=== PATIENT | female | born 1965 | race Asian ===

== ENCOUNTER 2020-11-07 17:45 | Outpatient (REF) | payer OTHER, SELFPAY ==
--- NOTE | 2020-11-07 17:48 | MR_ITS ---
EXAMINATION: MR BREAST WITHOUT AND WITH CONTRAST, BILATERAL CLINICAL INFORMATION: Personal history of left breast ADH. Follow up for bilateral areas of probably benign nodular enhancement. COMPARISON: Bilateral breast MRI dated 09/10/2019, images from MR-guided core biopsy and postbiopsy mammogram on the left dated 10/14/2019. TECHNIQUE: Imaging was performed with a dedicated breast coil. Prior to the administration of contrast, bilateral axial T1 and bilateral axial T2 weighted sequences were obtained. After the uneventful administration of?6.5 mL of Gadavist, dynamic contrast-enhanced VIBRANT series through the breasts in the axial plane were performed. Subtracted images were performed and reviewed. A delayed sagittal sequence through both breasts was acquired. Additionally, CAD post-processing, including maximum intensity projections, 3-D reconstructions and kinetic analysis, were performed an independent workstation and reviewed by the interpreting radiologist is a portion of this exam. FINDINGS: The patient's breast tissue is composed of heterogeneously dense fibroglandular elements. There is mild bilateral background parenchymal enhancement present. LEFT BREAST: There are subtle postsurgical changes in the 6-7 o'clock position, no suspicious enhancement is seen at the site of prior excision. There is focal [id number] enhancement in the upper inner quadrant (subtracted sequence image 57 of 116) which is unchanged compared with prior exam. Additionally, there is an oval enhancing nodule with a somewhat bilobed appearance in the 4 o'clock position, anterior depth (subtracted sequence image 72 of 116) measuring 0.5 cm which demonstrates indeterminate enhancement kinetics, type II enhancement curve. There is no new suspicious enhancing mass, duct dilatation or ductal-type enhancement present. No skin thickening or nipple retraction is seen. RIGHT BREAST: There is a round enhancing nodule in the 10 o'clock position, 2.5 cm from the nipple measuring 0.4 cm (subtracted sequence image 63 of 116). Although this enhancing nodule has not increased in size, it demonstrates suspicious enhancement kinetics (washout-type curve). There is no new suspicious enhancing mass, duct dilatation or ductal type enhancement present. No skin thickening or nipple retraction is seen. There is no suspicious internal mammary chain or axillary adenopathy. Limited views of the chest and abdomen are unremarkable. MR/MR breast BI wo/w con IMPRESSION: Bilateral enhancing nodules, 4 o'clock position on the left and 10 o'clock position on the right are indeterminate in appearance due to their enhancement kinetics. Postsurgical change in the left breast at 6 o'clock position from prior ADH resection. ASSESSMENT: LEFT BREAST: BI-RADS 4, suspicious. RIGHT BREAST: BI-RADS 4, suspicious. RECOMMENDATIONS: Recommend bilateral MR-guided core biopsy. The areas recommended for biopsy are smaller than the previously biopsied area which demonstrated atypical duct hyperplasia, however have similar morphology and enhancement. Results were called to Dr. Son on 11/10/20.
== END 2020-11-07 17:46 | disposition home or self-care (01) ==
LOC: HO.MRI 17:45
PROVIDERS: Visit Provider Internal Medicine Medical Oncology
DX: N60.92 Unspecified benign mammary dysplasia of left breast (principal)
CPT/HCPCS: 77049; A9585

== ENCOUNTER 2020-11-22 09:31 | Outpatient (REF) | payer OTHER, SELFPAY ==
--- NOTE | 2020-11-22 | MM_ITS ---
EXAMINATION: MR GUIDED VACUUM-ASSISTED CORE BIOPSY BREAST, LEFT MR GUIDED VACUUM-ASSISTED CORE BIOPSY BREAST, RIGHT MM DIGITAL MAMMOGRAPHY POST BIOPSY, BILATERAL CLINICAL INFORMATION: Personal history left breast ADH, status post subsequent excisional biopsy at outside facility. High risk screening MRI demonstrates small enhancing nodule left anterior 4:00 position and right anterior 10:00 position. Bilateral MR guided biopsy is recommended. COMPARISON: MRI bilateral breasts 11/07/2020, left MR biopsy 10/14/2019, bilateral screening mammography 12/26/2018. TECHNIQUE/PROCEDURE: Informed consent was obtained from the patient after discussion of the benefits, risks, and alternatives to biopsy today. Patient appeared to understand. Gave opportunity for questions. Patient signed consent form. Biopsy is performed under MRI guidance using breast surface coil. Imaging is performed without and with use of 6.5 mL Gadavist gadolinium contrast. [employer] introducer localization system is used with grid. LEFT BREAST: LESION: 5 mm enhancing nodule anterior 4:00 position with type II kinetics. LOCAL ANESTHESIA: 7.5 mL 1% lidocaine; 10.5 mL 2% lidocaine with epinephrine. NEEDLE: [employer] 9-gauge vacuum assisted core biopsy device. APPROACH: Lateral medial. CORES: 7. CLIP: TriMark cylinder shaped. RIGHT BREAST: Separate fresh biopsy supplies used for contralateral breast. LESION: 0.4 cm enhancing nodule anterior 12:00 position, washout kinetics. LOCAL ANESTHESIA: : 7.5 mL 1% lidocaine; 10.5 mL 2% lidocaine with epinephrine. NEEDLE: [employer] 9-gauge vacuum assisted core biopsy device. APPROACH: Lateral medial. CORES: 7. CLIP: TriMark spool/barbell shaped. POSTPROCEDURE UNILATERAL DIGITAL MAMMOGRAM: Mammography is performed using digital mammography in bilateral CC and bilateral ML views. The breasts are heterogeneously dense, which may obscure small masses (ACR BI-RADS breast composition Category c). The clip markers are in position. No gross hematoma. The patient tolerated the procedure well. No immediate complications. Home instructions reviewed with the patient. Final pathology results are pending. MM/MM diagnostic mammo BI IMPRESSION: 1. Status post MRI guided vacuum-assisted core biopsy left breast with clip placement and right breast with clip placement (total 2 sites, one each side). 2. Final pathology results pending. An addendum report will be issued.
--- NOTE | 2020-11-22 09:41 | MR_ITS ---
EXAMINATION: MR GUIDED VACUUM-ASSISTED CORE BIOPSY BREAST, LEFT MR GUIDED VACUUM-ASSISTED CORE BIOPSY BREAST, RIGHT MM DIGITAL MAMMOGRAPHY POST BIOPSY, BILATERAL CLINICAL INFORMATION: Personal history left breast ADH, status post subsequent excisional biopsy at outside facility. High risk screening MRI demonstrates small enhancing nodule left anterior 4:00 position and right anterior 10:00 position. Bilateral MR guided biopsy is recommended. COMPARISON: MRI bilateral breasts 11/07/2020, left MR biopsy 10/14/2019, bilateral screening mammography 12/26/2018. TECHNIQUE/PROCEDURE: Informed consent was obtained from the patient after discussion of the benefits, risks, and alternatives to biopsy today. Patient appeared to understand. Gave opportunity for questions. Patient signed consent form. Biopsy is performed under MRI guidance using breast surface coil. Imaging is performed without and with use of 6.5 mL Gadavist gadolinium contrast. [employer] introducer localization system is used with grid. LEFT BREAST: LESION: 5 mm enhancing nodule anterior 4:00 position with type II kinetics. LOCAL ANESTHESIA: 7.5 mL 1% lidocaine; 10.5 mL 2% lidocaine with epinephrine. NEEDLE: [employer] 9-gauge vacuum assisted core biopsy device. APPROACH: Lateral medial. CORES: 7. CLIP: TriMark cylinder shaped. RIGHT BREAST: Separate fresh biopsy supplies used for contralateral breast. LESION: 0.4 cm enhancing nodule anterior 12:00 position, washout kinetics. LOCAL ANESTHESIA: : 7.5 mL 1% lidocaine; 10.5 mL 2% lidocaine with epinephrine. NEEDLE: [employer] 9-gauge vacuum assisted core biopsy device. APPROACH: Lateral medial. CORES: 7. CLIP: TriMark spool/barbell shaped. POSTPROCEDURE UNILATERAL DIGITAL MAMMOGRAM: Mammography is performed using digital mammography in bilateral CC and bilateral ML views. The breasts are heterogeneously dense, which may obscure small masses (ACR BI-RADS breast composition Category c). The clip markers are in position. No gross hematoma. The patient tolerated the procedure well. No immediate complications. Home instructions reviewed with the patient. Final pathology results are pending. MR/MR guided breast biopsy RT IMPRESSION: 1. Status post MRI guided vacuum-assisted core biopsy left breast with clip placement and right breast with clip placement (total 2 sites, one each side). 2. Final pathology results pending. An addendum report will be issued.
--- NOTE | 2020-11-22 09:41 | MR_ITS ---
EXAMINATION: MR GUIDED VACUUM-ASSISTED CORE BIOPSY BREAST, LEFT MR GUIDED VACUUM-ASSISTED CORE BIOPSY BREAST, RIGHT MM DIGITAL MAMMOGRAPHY POST BIOPSY, BILATERAL CLINICAL INFORMATION: Personal history left breast ADH, status post subsequent excisional biopsy at outside facility. High risk screening MRI demonstrates small enhancing nodule left anterior 4:00 position and right anterior 10:00 position. Bilateral MR guided biopsy is recommended. COMPARISON: MRI bilateral breasts 11/07/2020, left MR biopsy 10/14/2019, bilateral screening mammography 12/26/2018. TECHNIQUE/PROCEDURE: Informed consent was obtained from the patient after discussion of the benefits, risks, and alternatives to biopsy today. Patient appeared to understand. Gave opportunity for questions. Patient signed consent form. Biopsy is performed under MRI guidance using breast surface coil. Imaging is performed without and with use of 6.5 mL Gadavist gadolinium contrast. [employer] introducer localization system is used with grid. LEFT BREAST: LESION: 5 mm enhancing nodule anterior 4:00 position with type II kinetics. LOCAL ANESTHESIA: 7.5 mL 1% lidocaine; 10.5 mL 2% lidocaine with epinephrine. NEEDLE: [employer] 9-gauge vacuum assisted core biopsy device. APPROACH: Lateral medial. CORES: 7. CLIP: TriMark cylinder shaped. RIGHT BREAST: Separate fresh biopsy supplies used for contralateral breast. LESION: 0.4 cm enhancing nodule anterior 12:00 position, washout kinetics. LOCAL ANESTHESIA: : 7.5 mL 1% lidocaine; 10.5 mL 2% lidocaine with epinephrine. NEEDLE: [employer] 9-gauge vacuum assisted core biopsy device. APPROACH: Lateral medial. CORES: 7. CLIP: [employer]Mark spool/barbell shaped. POSTPROCEDURE UNILATERAL DIGITAL MAMMOGRAM: Mammography is performed using digital mammography in bilateral CC and bilateral ML views. The breasts are heterogeneously dense, which may obscure small masses (ACR BI-RADS breast composition Category c). The clip markers are in position. No gross hematoma. The patient tolerated the procedure well. No immediate complications. Home instructions reviewed with the patient. Final pathology results are pending. MR/MR guided breast biopsy LT IMPRESSION: 1. Status post MRI guided vacuum-assisted core biopsy left breast with clip placement and right breast with clip placement (total 2 sites, one each side). 2. Final pathology results pending. An addendum report will be issued.
[2020-11-22] MEDS: Lidocaine HCl 1%/Epi 1:100,000 20 ML VIAL INFILTRATI (11:47)
[2020-11-22] MEDS: Lidocaine HCl 1 % MPF 5 ML VIAL SUBCUT ×3 (11:49→11:51)
== END 2020-11-22 09:32 | disposition home or self-care (01) ==
LOC: HO.MRI 09:31
PROVIDERS: Visit Provider Internal Medicine Medical Oncology
DX: N63.11 Unspecified lump in the right breast, upper outer quadrant (principal); N64.9 Disorder of breast, unspecified
CPT/HCPCS: 19085; 77066; 88305; A4648; A9585

== ENCOUNTER 2020-11-28 08:06 | Outpatient (REF) | payer OTHER, SELFPAY ==
[2020-11-28 08:27] LABS: COVID-19 Test Negative (Negative)
== END 2020-11-28 08:07 | disposition home or self-care (01) ==
LOC: HO.EMPCOV 08:06
PROVIDERS: Visit Provider Internal Medicine
DX: Z20.828 Contact with and (suspected) exposure to other viral communicable diseases (principal)
CPT/HCPCS: 87635; C9803

== ENCOUNTER 2021-05-04 07:32 | Outpatient (REF) | payer OTHER, SELFPAY ==
--- NOTE | ~2021-05-04 | MM_ITS ---
EXAMINATION: MM SCREENING DIGITAL BREAST TOMOSYNTHESIS, BILATERAL CLINICAL INFORMATION: Screening. Asymptomatic. Prior history 1 mm focus left ADH (MR biopsy 10/14/2019). More recent benign bilateral MR biopsy 11/22/2020. The lifetime risk of breast cancer based on the Tyrer-Cuzick Model is 31%. COMPARISON: Mammography: 11/22/2020, 12/26/2018, 12/07/2016 TECHNIQUE: Digital breast tomosynthesis is performed in both the craniocaudal and mediolateral oblique views along with computer-aided detection (CAD). Synthesized 2D images are generated from the tomosynthesis. FINDINGS: There are scattered areas of fibroglandular density (ACR BI-RADS breast composition Category b). There are no significant masses, abnormal calcifications, or other abnormalities. There are biopsy clip markers retroareolar left breast and anterior upper outer right breast. A few scattered benign coarse calcifications are present medial breasts. The axilla and skin contours are unremarkable. MM/MM tomosynthesis screening BI IMPRESSION: No mammographic evidence of malignancy. ASSESSMENT: BI-RADS 2: Benign RECOMMENDATION: 1. Routine annual mammography screening. 2. The lifetime risk of breast cancer based on the Tyrer-Cuzick Model is 31%. Additional annual adjunct screening with breast MRI may be of benefit in women with a risk score of 20% or greater. This patient's information was entered into a reminder system with a target due date for their next mammogram.
== END 2021-05-04 07:33 | disposition home or self-care (01) ==
LOC: HO.MAMMO 07:32
PROVIDERS: Absent Provider Internal Medicine; PCP Internal Medicine; Visit Provider Internal Medicine Medical Oncology
DX: Z12.31 Encounter for screening mammogram for malignant neoplasm of breast (principal)
CPT/HCPCS: 77063; 77067

== ENCOUNTER 2021-06-25 15:05 | Outpatient (REF) | payer OTHER, SELFPAY ==
--- NOTE | ~2021-06-25 | XR_ITS ---
EXAMINATION: XR ELBOW, LEFT XR FOREARM, LEFT CLINICAL INFORMATION: Trauma, pain COMPARISON: None TECHNIQUE: The left elbow is imaged in 3 views. The left forearm is imaged in 2 views. There are a total of 5 views. FINDINGS: Elbow: There is no elbow capsular effusion. No visible fracture line or dislocation. There is a fine corticated mineralization overlying the central elbow joint. There is no donor site to suggest acute avulsion. This may represent an old soft tissue mineralization. Lateral view shows fine linear mineralization in region of distal triceps. Forearm: The radius and ulnar appear intact. Ulnar variance is neutral. No destructive process. XR/XR elbow LT 2V IMPRESSION: 1. No visible acute fracture or dislocation left elbow, left forearm. No elbow capsular effusion. 2. Fine corticated mineralization overlying central elbow joint possible old soft tissue mineralization. Fine mineralization in region of distal triceps.
--- NOTE | ~2021-06-25 | XR_ITS ---
EXAMINATION: XR ELBOW, LEFT XR FOREARM, LEFT CLINICAL INFORMATION: Trauma, pain COMPARISON: None TECHNIQUE: The left elbow is imaged in 3 views. The left forearm is imaged in 2 views. There are a total of 5 views. FINDINGS: Elbow: There is no elbow capsular effusion. No visible fracture line or dislocation. There is a fine corticated mineralization overlying the central elbow joint. There is no donor site to suggest acute avulsion. This may represent an old soft tissue mineralization. Lateral view shows fine linear mineralization in region of distal triceps. Forearm: The radius and ulnar appear intact. Ulnar variance is neutral. No destructive process. XR/XR forearm LT 2V IMPRESSION: 1. No visible acute fracture or dislocation left elbow, left forearm. No elbow capsular effusion. 2. Fine corticated mineralization overlying central elbow joint possible old soft tissue mineralization. Fine mineralization in region of distal triceps.
--- NOTE | ~2021-06-25 | XR_ITS ---
EXAMINATION: LEFT CLAVICLE, SHOULDER AND HUMERUS X-RAY CLINICAL INFORMATION: Trauma COMPARISON: None TECHNIQUE: 2 views of the left clavicle, 3 views of the left shoulder and 2 views of the left humerus FINDINGS: Left clavicle: Bone alignment is normal. No fracture or dislocation is seen. Joint spaces are normal. Soft tissues are normal. Left shoulder: Bone alignment is normal. No fracture or dislocation is seen. The joint spaces are normal. There is a small focus of soft tissue calcification adjacent to the greater tuberosity better appreciated on the clavicle x-ray. Left humerus: Bone alignment is normal. No fracture or dislocation is seen. Joint spaces are normal. Soft tissues are normal. XR/XR humerus LT IMPRESSION: No fracture or dislocation seen.
--- NOTE | ~2021-06-25 | XR_ITS ---
EXAMINATION: LEFT CLAVICLE, SHOULDER AND HUMERUS X-RAY CLINICAL INFORMATION: Trauma COMPARISON: None TECHNIQUE: 2 views of the left clavicle, 3 views of the left shoulder and 2 views of the left humerus FINDINGS: Left clavicle: Bone alignment is normal. No fracture or dislocation is seen. Joint spaces are normal. Soft tissues are normal. Left shoulder: Bone alignment is normal. No fracture or dislocation is seen. The joint spaces are normal. There is a small focus of soft tissue calcification adjacent to the greater tuberosity better appreciated on the clavicle x-ray. Left humerus: Bone alignment is normal. No fracture or dislocation is seen. Joint spaces are normal. Soft tissues are normal. XR/XR clavicle LT IMPRESSION: No fracture or dislocation seen.
--- NOTE | ~2021-06-25 | XR_ITS ---
EXAMINATION: LEFT CLAVICLE, SHOULDER AND HUMERUS X-RAY CLINICAL INFORMATION: Trauma COMPARISON: None TECHNIQUE: 2 views of the left clavicle, 3 views of the left shoulder and 2 views of the left humerus FINDINGS: Left clavicle: Bone alignment is normal. No fracture or dislocation is seen. Joint spaces are normal. Soft tissues are normal. Left shoulder: Bone alignment is normal. No fracture or dislocation is seen. The joint spaces are normal. There is a small focus of soft tissue calcification adjacent to the greater tuberosity better appreciated on the clavicle x-ray. Left humerus: Bone alignment is normal. No fracture or dislocation is seen. Joint spaces are normal. Soft tissues are normal. XR/XR shoulder LT min 2V IMPRESSION: No fracture or dislocation seen.
== END 2021-06-25 15:06 | disposition home or self-care (01) ==
LOC: HO.HMGCX 15:05
PROVIDERS: PCP Internal Medicine; Visit Provider Nurse Practitioner Family
DX: Z13.89 Encounter for screening for other disorder (principal)
CPT/HCPCS: 73000; 73030; 73060; 73070; 73090

== ENCOUNTER 2021-11-01 12:21 | Outpatient (REF) | payer OTHER, SELFPAY ==
[2021-11-01 13:53] LABS: MANUAL DIFF FLAG NO
[2021-11-01 14:00] LABS: Basophils Percent Auto 0.6 % (0-2); Eosinophils Absolute Auto 0.3 X10*3/uL (0.0-0.4); Eosinophils Percent Auto 4.1 % (0-4); Hematocrit 37.7 % (37.0-47.0); Hemoglobin 12.1 g/dl (12.0-16.0); Imm Gran Abs Auto 0.01 X10*3/uL (0.00-0.03); Imm Gran Pct Auto 0.1 % (0.0-0.4); Lymphocytes Absolute Auto 2.6 X10*3/uL (1.2-4.9); Lymphocytes Percent Auto 36.2 % (20-40); Mean Corpuscular HGB Conc 32.1 g/dl (31.0-35.0); Mean Corpuscular Hemoglobin 28.3 pg (27.0-33.0); Mean Corpuscular Volume 88.3 fL (80.0-98.0); Mean Platelet Volume 9.4 fL (9.4-12.3); Monocytes Absolute Auto 0.5 X10*3/uL (0.1-1.2); Monocytes Percent Auto 7.2 % (2-11); Neutrophils Absolute Auto 3.8 x10*3/uL (2.0-8.3); Neutrophils Percent Auto 51.8 % (45-73); Platelet Count 317 X10*3/uL (160-400); Red Blood Count 4.27 X10*6/uL (4.20-5.50); Red Cell Distribution Width 12.3 % (11.0-16.0); White Blood Count 7.3 X10*3/uL (4.8-10.8)
[2021-11-01 14:15] LABS: Estimated Average Glucose 123 mg/dL; Hemoglobin A1c % 5.9 %
[2021-11-01 14:35] LABS: Alanine Aminotransferase 23 U/L (0-31); Albumin Level 4.4 g/dL (3.5-5.0); Alkaline Phosphatase 69 U/L (39-117); Anion Gap 12 (12-20); Aspartate Amino Transferase 20 U/L (5-31); Bilirubin Total 0.6 mg/dL (0.0-1.0); Blood Urea Nitrogen 14 mg/dL (9-16); Calcium 9.9 mg/dL (8.4-10.2); Carbon Dioxide 29 mmol/L (22-29); Chloride 103 mmol/L (96-108); Cholesterol 213 mg/dL; Estimated Glomerular Filt Rate > 60; Glucose Fasting 100 mg/dL (60-99); HDL Cholesterol 36 mg/dL; LDL Cholesterol Calculated 134 mg/dl; Potassium 3.9 mmol/L (3.3-5.1); Sodium 140 mmol/L (135-145); Total Protein 7.8 g/dL (6.5-8.0); Triglycerides 219 mg/dL
[2021-11-01 14:46] LABS: TSH reflex Free T4 1.27 uIU/mL (0.32-4.0)
[2021-11-05 15:42] LABS: HCV Log PCR <1.18 NOT DETECTED Log IU/mL (NOT DETECTED); HepC Viral Load <15 NOT DETECTED IU/mL (NOT DETECTED)
[2021-11-06 13:47] LABS: Vitamin D 25-OH, D2 <4 ng/mL; Vitamin D 25-OH, D3 18 ng/mL; Vitamin D 25-OH, Total 18 ng/mL (30-100)
== END 2021-11-01 12:22 | disposition home or self-care (01) ==
LOC: HO.HMGCLDS 12:21
PROVIDERS: Internal Medicine Medical Oncology; PCP Internal Medicine; Visit Provider Internal Medicine
DX: Z00.01 Encounter for general adult medical examination with abnormal findings (principal); J45.40 Moderate persistent asthma, uncomplicated; R73.01 Impaired fasting glucose; Z91.09 Other allergy status, other than to drugs and biological substances; R76.8 Other specified abnormal immunological findings in serum; R53.83 Other fatigue; N60.92 Unspecified benign mammary dysplasia of left breast; I10 Essential (primary) hypertension
CPT/HCPCS: 36415; 80053; 80061; 82306; 83036; 84443; 85025; 87522

== ENCOUNTER 2021-11-05 17:39 | Outpatient (REF) | payer OTHER, SELFPAY ==
--- NOTE | ~2021-11-05 | MR_ITS ---
EXAMINATION: MR BREAST WITHOUT AND WITH CONTRAST, BILATERAL CLINICAL INFORMATION: High-risk screening. History of left breast ADH, 7:00. History of benign MRI guided biopsies, left breast, 4:00 and 10:00, right breast. COMPARISON: MRI 11/07/2020, 09/10/2019 TECHNIQUE: Imaging was performed with a dedicated breast coil. Prior to the administration of contrast, bilateral axial T1 and bilateral axial T2 weighted sequences were obtained. After the uneventful administration of?6 mL of Gadavist, dynamic contrast-enhanced VIBRANT series through the breasts in the axial plane were performed. Subtracted images were performed and reviewed. A delayed sagittal sequence through both breasts was acquired. Additionally, CAD post-processing, including maximum intensity projections, 3-D reconstructions and kinetic analysis, were performed an independent workstation and reviewed by the interpreting radiologist is a portion of this exam. FINDINGS: The patient's fibroglandular tissue demonstrates moderate background enhancement. LEFT BREAST: There is a tiny 2 mm focus of enhancement associated biopsy clip in the 4:00 position of the anterior left breast. Pathology was benign. Stable focus and associated nonmasslike enhancement along the 10:00 axis of the left breast compared back to 2019, strongly favoring a benign process. No new suspicious masslike or non-masslike enhancement. No abnormal skin thickening or nipple retraction. No abnormal architectural distortion. Review of the T2 weighted images demonstrates no fibrocystic changes or dilated ducts. Review of kinetic images reveals no additional findings. RIGHT BREAST: There is a tiny focus of enhancement with associated biopsy clip artifact in the 10:00 position of the anterior right breast, decreased in conspicuity compared to the prior examination. Pathology was benign. No new suspicious masslike or non-masslike enhancement. No abnormal skin thickening or nipple retraction. No abnormal architectural distortion. Review of the T2 weighted images demonstrates no fibrocystic changes or dilated ducts. Review of kinetic images reveals no additional findings. There is no suspicious internal mammary chain or axillary adenopathy. Limited views of the chest and abdomen are unremarkable. MR/MR breast BI wo/w con IMPRESSION: No MR specific evidence of malignancy. ASSESSMENT: LEFT BREAST: BI-RADS 2 - Benign Findings. RIGHT BREAST: BI-RADS 1-Negative RECOMMENDATIONS: Clinical follow-up. Continued annual mammographic surveillance. Further breast MRI as risk factors dictate.
== END 2021-11-05 17:40 | disposition home or self-care (01) ==
LOC: HO.MRI 17:39
PROVIDERS: Visit Provider Internal Medicine Medical Oncology
DX: N60.92 Unspecified benign mammary dysplasia of left breast (principal)
CPT/HCPCS: 77049; A9585

== ENCOUNTER 2021-11-29 14:55 | Outpatient (REF) | payer OTHER, SELFPAY ==
[2021-11-29 15:45] LABS: Influenza A PCR NEGATIVE (Negative); Influenza B PCR NEGATIVE (Negative); Resp Syncy Virus RNA Qual PCR NEGATIVE (Negative); SARS COV2 PCR INHOUSE NEGATIVE (Negative)
== END 2021-11-29 14:56 | disposition home or self-care (01) ==
LOC: HO.LNP 14:55
PROVIDERS: Visit Provider Nurse Practitioner Family
DX: Z20.822 Contact with and (suspected) exposure to COVID-19 (principal)
CPT/HCPCS: 0241U

== ENCOUNTER 2022-04-10 08:50 | Outpatient (REF) | payer OTHER, SELFPAY ==
[2022-04-10 12:00] LABS: Influenza A PCR NEGATIVE (Negative); Influenza B PCR NEGATIVE (Negative); Resp Syncy Virus RNA Qual PCR NEGATIVE (Negative); SARS COV2 PCR INHOUSE POSITIVE (Negative)
== END 2022-04-10 08:51 | disposition home or self-care (01) ==
LOC: HO.HMGCLDS 08:50
PROVIDERS: Visit Provider Nurse Practitioner Family
DX: Z20.822 Contact with and (suspected) exposure to COVID-19 (principal); B34.9 Viral infection, unspecified
CPT/HCPCS: 0241U

== ENCOUNTER 2022-10-25 09:02 | Outpatient (REF) | payer OTHER, SELFPAY ==
--- NOTE | ~2022-10-25 | MM_ITS ---
EXAMINATION: MM SCREENING DIGITAL BREAST TOMOSYNTHESIS, BILATERAL CLINICAL INFORMATION: Screening. Asymptomatic. History left breast ADH. Family history breast cancer, mother. The lifetime risk of breast cancer based on the Tyrer-Cuzick Model is 18%. COMPARISON: Mammography: 05/04/2021, 11/22/2020, 12/26/2018, 12/07/2016; MRI breasts 11/05/2021. TECHNIQUE: Digital breast tomosynthesis is performed in both the craniocaudal and mediolateral oblique views along with computer-aided detection (CAD). Synthesized 2D images are generated from the tomosynthesis. Additional right MLO view is provided. FINDINGS: There are scattered areas of fibroglandular density (ACR BI-RADS breast composition Category b). There are no significant masses, abnormal calcifications, or other abnormalities. No developing density or interval architectural abnormality. Again, there are biopsy clip markers again seen anterior central left breast and anterior upper outer right breast. The axilla and skin contours are unremarkable. No significant changes. MM/MM tomosynthesis screening BI IMPRESSION: No mammographic evidence of malignancy. ASSESSMENT: BI-RADS 1: Negative RECOMMENDATION: Routine annual mammography screening. This patient's information was entered into a reminder system with a target due date for their next mammogram.
== END 2022-10-25 09:03 | disposition home or self-care (01) ==
LOC: HO.MAMMO 09:02
PROVIDERS: Absent Provider Internal Medicine Medical Oncology; PCP Internal Medicine; Visit Provider Internal Medicine
DX: Z12.31 Encounter for screening mammogram for malignant neoplasm of breast (principal)
CPT/HCPCS: 77063; 77067

== ENCOUNTER → 2023-11-01 08:00 | Outpatient (BNV) | payer OTHER, SELFPAY | PROVIDERS: PCP Internal Medicine; Visit Provider Radiology Diagnostic Radiology | DX: Z12.31 Encounter for screening mammogram for malignant neoplasm of breast (principal) | CPT/HCPCS: 77063; 77067 ==

== ENCOUNTER 2023-11-01 08:03 | Outpatient (REF) | payer OTHER, SELFPAY ==
--- NOTE | ~2023-11-01 | MM_ITS ---
EXAMINATION: MM SCREENING DIGITAL BREAST TOMOSYNTHESIS, BILATERAL CLINICAL INFORMATION: Screening. Asymptomatic. COMPARISON: Mammography: This study is compared with prior exams dating back to 2019. TECHNIQUE: Digital breast tomosynthesis is performed in both the craniocaudal and mediolateral oblique views along with computer-aided detection (CAD). Synthesized 2D images are generated from the tomosynthesis. FINDINGS: The breasts are heterogeneously dense, which may obscure small masses (ACR BI-RADS breast composition Category c). There are no significant masses, abnormal calcifications, or other abnormalities. There are tissue markers in each breast from prior benign percutaneous biopsies. MM/MM tomosynthesis screening BI IMPRESSION: No mammographic evidence of malignancy. ASSESSMENT: BI-RADS BI-RADS 2 - Benign Findings RECOMMENDATION: Routine annual mammography screening. 1 year F/U This examination should not preclude the clinical evaluation of a suspicious palpable abnormality. This patient's information was entered into a reminder system with a target due date for their next mammogram.
== END 2023-11-01 08:04 | disposition home or self-care (01) ==
LOC: HO.MAMMO 08:03
PROVIDERS: PCP Internal Medicine; Visit Provider Internal Medicine
DX: Z12.31 Encounter for screening mammogram for malignant neoplasm of breast (principal)
CPT/HCPCS: 77063; 77067

== ENCOUNTER → 2024-07-29 11:36 | Outpatient (RCR) | payer OTHER, SELFPAY ==
[2020-11-06 14:40] VITALS: BMI 25.2
[2020-11-06 14:42] VITALS: BP 155/83; PULSE 89; RESP 18; TEMP 36.9; O2SAT 97
--- NOTE | 2020-11-06 15:22 | MHC.HEMONC ---
Addendum entered by Juliana Mckeon RN 11/06/20 15:30: Pt had labs done and will be reviewed. Pt to have MRI of breast tomorrow evening. She will be starting on Tamoxifen per Dr Son and I gave her pt education on it. F/U per Dr Son. Original Note: pt seen in Consultation with Dr Son due to h/y hyperplasia of breast. Mother has of breast cancer.
[2020-11-06 15:30] LABS: MANUAL DIFF FLAG NO
--- NOTE | 2020-11-06 15:34 | P.CNHO_ITS ---
Subjective - Subjective Chief complaint: atypical lobular hyperplasia of the left breast. Patient: new to practice Consult date: 11/06/20 Requesting Physician: Isael Primary Care Provider: Rosalino Kirkland MD Medical Summary: DIAGNOSIS: Family History of Breast Cancer. Atypical lobular hyperplasia of the left breast. Ductal hyperplasia of the right breast. HPI - Consult Narrative Reason for consult: Atypical Lobular Hyperplasia Left Breast. Narrative: Nataliya Woo is a pleasant 55 year old lady, with history of hypertension. Her mom was noted to have breast cancer about 6 years ago. she had triple negative disease. unfortunately she earlier in the year. She did undergo genetic testing. She was noted to have some variance of uncertain significance, SMARCA4, was highlighted. Dr. Woo had an MRI of the breast 09/10/2019 which revealed: 1. Oval enhancing mass in the left breast measuring 0.6 cm left breast 7 o'clock position 2.5 cm from the nipple. 2. 2 other foci of enhancement in the left breast at the 12 o'clock and 3 o'clock position of the left breast. 3. Focus of enhancement in the right breast at the 11 o'clock position of the right breast. ASSESSMENT: LEFT BREAST: BI-RADS 4 suspicious. RIGHT BREAST: BI-RADS 3 probably benign. She had an MRI guided biopsy on 10/14/2019 which revealed: Breast, left, mass, needle core biopsy: Breast parenchyma with nodular adenosis, sclerosing adenosis, fibroadenoma and a small focus of atypical ductal hyperplasia (ADH, 1 mm); negative for invasive carcinoma. She underwent excision of that spot with a seed placement by Dr. Dumont in October. Results revealed: Atypical lobular hyperplasia of the left breast. She is now here for further suggestion. Her menarche was at 14. Menopause: she has not had a period since August. she has noticed some hot flashes. F.H: Mom noted to have triple negative breast cancer at the age of 71. Maternal aunt developed breast cancer in her 60s. Her 3 cousins were noted to have breast cancer under the age of 40. 1 from it. Social history: She is a physician at [employer], primary care doctor. She is , has 3 daughters. Denies smoking and drinks socially. Review of Systems - Constitutional Reports system reviewed and no additional complaints, except as documented - Eyes Reports system reviewed and no additional complaints, except as documented - ENT Reports system reviewed and no additional complaints, except as documented - Cardiovascular Reports system reviewed and no additional complaints, except as documented - Respiratory Reports no additional respiratory complaints - Gastrointestinal Reports system reviewed and no additional complaints, except as documented - Genitourinary Reports no additional female genitourinary complaints - Musculoskeletal Reports system reviewed and no additional complaints, except as documented - Integumentary/Breasts Skin/Breast: Reports no additional skin complaints - Neurologic Reports system reviewed and no additional complaints, except as documented - Psychiatric Reports system reviewed and no additional complaints, except as documented - Endocrine Reports no additional endocrine complaints - Hematologic/Lymphatic Reports system reviewed and no additional complaints, except as documented - Allergic/Immunologic Reports system reviewed and no additional complaints, except as documented PMFSH Medical History: Medical History (Last Updated 11/06/20 @ 14:49 by Juliana Mckeon RN) Asthma Atypical lobular hyperplasia (ALH) of left breast Hypertension Nearsightedness Functional capacity: independent ambulation Patient : No Family History: Family History (Last Updated 11/06/20 @ 15:33 by Juliana Mckeon RN) Mother Invasive ductal carcinoma of breast Father Diabetes Father Hypertension Surgical History: Surgical History (Last Updated 11/06/20 @ 14:48 by Juliana Mckeon RN) H/O tubal ligation History of breast lump/mass excision Home Medications and Allergies Home Medications Medication Instructions Recorded Confirmed Type amlodipine 1 tab PO DAILY 11/06/20 11/06/20 History olmesartan-hydrochlorothiazide 1 tab PO DAILY 11/06/20 11/06/20 History Allergies Allergy/AdvReac Type Severity Reaction Status Date / Time No Known Allergies Allergy Verified 11/06/20 14:49 [No Known Allergies*] Physical Exam Vital signs: Vital Signs Temp 98.4 F 11/06/20 14:42 Pulse 89 11/06/20 14:42 Resp 18 11/06/20 14:42 BP 155/83 H 11/06/20 14:42 Pulse Ox 97 11/06/20 14:42 Intake & Output 11/05/20 11/06/20 11/06/20 18:59 06:59 18:59 Other: Weight 62.6 kg Weight 62.6 kg - Constitutional Present: no acute distress - Routine HEENT Exam Head: Present: normal inspection ENT: Present: mucous membranes moist - Routine Neck Exam Present: supple - Routine Respiratory Exam Present: CTAB - Routine Cardiovascular Exam Cardiovascular: Present: RRR, S1, S2 - Routine Abdominal Exam Present: soft, nontender - Routine Rectal Exam Patient deferred: digital exam - Routine Extremities Exam Present: nontender - Routine Back/Spine/Pelvis Exam Back/Spine: Present: full ROM - Routine Skin Exam Present: intact - Routine Neurological Exam Present: alert, oriented X3 - Detailed Neurological Exam: Coma Scale Eye Opening: Spontaneous (4) Verbal Response: Oriented (5) Motor Response: Obeys commands (6) [place] Coma Scale Total: 15 Hem/Onc Consult Result - Labs CBC & Chem 7: 11/06/20 15:20 11/06/20 15:20 Assessment and Plan (1) Atypical lobular hyperplasia (ALH) of left breast Status: Acute A 55-year-old lady with a Family History of Breast Cancer in her mom but mom had a triple negative breast cancer, but she was postmenopausal and in her 70s. I saw her back in December of 2016. I recommended MRI of the breasts, since that would was indicated especially in view of the risk assessment model presenting more than a 20% risk. I alternated the mammogram with the MRI. She then had a left breast biopsy in 10/19 which came back positive for atypical ductal hyperplasia. Repeat biopsy was done in October by Dr. Dumont. This came back positive for; Atypical lobular hyperplasia. Sclerosing adenosis. Usual ductal hyperplasia, mild. Fibroadenomatous change. Stromal fibrosis of previous core biopsy site. MRI of both breasts was ordered. This was done on 11/10. Results: Bilateral enhancing nodules, 4 o'clock position on the left and 10 o'clock position on the right are indeterminate in appearance due to their enhancement kinetics. Recommendations: Bilateral MR guided core biopsy. Area recommended for biopsy are smaller than the previous biopsied area which demonstrated atypical ductal hyperplasia however similar morphology and enhancement. PLAN: Will proceed with bilateral MRI guided biopsies, as recommended above. Will make further plans based upon the above results. I also recommend genetic testing in view of her strong family history including her mom and 3 1st cousins, at age is less than 40, including 1 of them who . She had that done on 11/10. In the meantime, the patient was advised on healthy lifestyle including plenty of exercise and fruits and vegetables. She will return in 3 months for a followup visit. I will check baseline labs. Thanks, CC: Dr. Rosalino Kirkland.
[2020-11-06 15:41] LABS: Basophils Percent Auto 0.5 % (0-2); Eosinophils Absolute Auto 0.4 X10*3/uL (0.0-0.4); Eosinophils Percent Auto 4.9 % (0-4); Hematocrit 39.7 % (37-47); Hemoglobin 12.7 g/dl (12.0-16.0); Imm Gran Abs Auto 0.04 X10*3/uL (0.00-0.03); Imm Gran Pct Auto 0.5 % (0.0-0.4); Lymphocytes Absolute Auto 2.2 X10*3/uL (1.2-4.9); Lymphocytes Percent Auto 29.7 % (20-40); Mean Corpuscular Hemoglobin 27.5 pg (27.0-33.0); Mean Corpuscular Volume 86.1 fL (80-98); Mean Platelet Volume 9.3 fL (9.4-12.3); Monocytes Absolute Auto 0.6 X10*3/uL (0.1-1.2); Monocytes Percent Auto 7.8 % (2-11); Neutrophils Absolute Auto 4.3 X10*3/uL (2.0-8.3); Neutrophils Percent Auto 56.6 % (45-73); Platelet Count 343 X10*3/uL (160-400); Red Blood Count 4.61 X10*6/uL (4.20-5.50); Red Cell Distribution Width 12.3 % (11.0-16.0); White Blood Count 7.5 X10*3/uL (4.8-10.8)
[2020-11-06 16:15] LABS: Alanine Aminotransferase 26 U/L (0-31); Albumin Level 4.7 g/dL (3.5-5.0); Alkaline Phosphatase 65 U/L (39-117); Anion Gap 13 (12-20); Aspartate Amino Transferase 22 U/L (5-31); Bilirubin Total 0.3 mg/dL (0.0-1.0); Blood Urea Nitrogen 9 mg/dL (9-16); Calcium 10.3 mg/dL (8.4-10.2); Carbon Dioxide 30 mmol/L (22-29); Chloride 101 mmol/L (96-108); Estimated Glomerular Filt Rate > 60; Glucose Random 120 mg/dL (60-115); Potassium 3.6 mmol/l (3.3-5.1); Sodium 140 mmol/L (135-145); Total Protein 8.2 g/dL (6.5-8.0)
[2020-11-06 16:37] LABS: Vitamin D 25-OH Total 28.3 ng/mL (>30)
[2020-11-08 11:07] LABS: CA 27.29 18 U/mL (<38)
--- NOTE | 2020-11-10 16:30 | MHC.HEMONC ---
genetic test drawn. Dr Son discussed recent MRI.
--- NOTE | 2020-11-10 16:32 | MHC.HEMONC ---
pt to have bx both breasts, Orders given to Sammie for ? PA and scheduling at [facility]
--- NOTE | 2021-02-12 15:07 | P.PNHO_ITS ---
[facility] Telehealth - Telehealth Location of Provider rendering services: Hem/onc office. Location of Patient: Medical Office. Patient Identification confirmed using: Name, : Yes Telehealth Method: Via telephone. Patient verbally consented to treatment: Yes. Patient verbally consented to billing insurance company: Yes Patient informed of any privacy concerns related to visit: Yes Medical Summary - Medical Summary Date of Service: 02/12/21 Chief complaint: Follow-up for: High risk of breast cancer. Medical Summary: DIAGNOSIS: Family History of Breast Cancer. Atypical lobular hyperplasia of the left breast. Ductal hyperplasia of the right breast. Interval History Interval history: Nataliya Woo is a pleasant 55 year old lady, with history of hypertension, with home a tele visit was held. She tells me that her blood pressure has been rather fluctuating. Has been difficult to controlled lately. She does feel tired at times. She is working full-time and has 4 girls at home. She has been really busy. She does feel rather warm, with occasional hot flashes. She has to turn the heat down in the house. Other than that she is well. She gets occasional pain at the site of the biopsy in the left breast. She denies any chest pain or trouble breathing. No abdominal pain nausea vomiting heartburn indigestion. Her bowels are working without any gross blood in it. She enjoys a good appetite. She has gained weight. She is planning on exercising. She is in good spirits. Rest of the review of systems is unremarkable. Previous history: She had an MRI of the breast 09/10/2019 which revealed: 1. Oval enhancing mass in the left breast measuring 0.6 cm left breast 7 o'clock position 2.5 cm from the nipple. 2. 2 other foci of enhancement in the left breast at the 12 o'clock and 3 o'clock position of the left breast. 3. Focus of enhancement in the right breast at the 11 o'clock position of the right breast. ASSESSMENT: LEFT BREAST: BI-RADS 4 suspicious. RIGHT BREAST: BI-RADS 3 probably benign. She had an MRI guided biopsy on 10/14/2019 which revealed: Breast, left, mass, needle core biopsy: Breast parenchyma with nodular adenosis, sclerosing adenosis, fibroadenoma and a small focus of atypical ductal hyperplasia (ADH, 1 mm); negative for invasive carcinoma. She underwent excision of that spot with a seed placement by Dr. Dumont in October. Results revealed: Atypical lobular hyperplasia of the left breast. . Family history: Her mom was noted to have breast cancer about 6 years ago. she had triple negative disease. unfortunately she earlier in the year. She did undergo genetic testing. She was noted to have some variance of uncertai n significance, SMARCA4, was highlighted. Mom noted to have triple negative breast cancer at the age of 71. Maternal aunt developed breast cancer in her 60s. Her 3 cousins were noted to have breast cancer under the age of 40. 1 from it. Instrument Repairer history: Her menarche was at 14. Menopause: she has not had a period since August,. She has noticed some hot flashes. Social history: She is a physician at [employer], primary care doctor. She is , has 3 daughters. Denies smoking and drinks socially. Review of Systems - Constitutional Reports system reviewed and no additional complaints, except as documented - Eyes Reports system reviewed and no additional complaints, except as documented - ENT Reports system reviewed and no additional complaints, except as documented - Cardiovascular Reports system reviewed and no additional complaints, except as documented - Respiratory Reports no additional respiratory complaints - Gastrointestinal Reports system reviewed and no additional complaints, except as documented - Genitourinary Reports no additional female genitourinary complaints - Musculoskeletal Reports system reviewed and no additional complaints, except as documented - Integumentary/Breasts Skin/Breast: Reports no additional skin complaints - Neurologic Reports system reviewed and no additional complaints, except as documented - Psychiatric Reports system reviewed and no additional complaints, except as documented - Endocrine Reports no additional endocrine complaints - Hematologic/Lymphatic Reports system reviewed and no additional complaints, except as documented - Allergic/Immunologic Reports system reviewed and no additional complaints, except as documented Oncology Screenings - ECOG Performance Status ECOG Performance Status: 0 Home Medications and Allergies Home Medications Medication Instructions Recorded Confirmed Type amlodipine 1 tab PO DAILY 11/06/20 11/06/20 History olmesartan-hydrochlorothiazide 1 tab PO DAILY 11/06/20 11/06/20 History Allergies Allergy/AdvReac Type Severity Reaction Status Date / Time No Known Allergies Allergy Verified 11/06/20 14:49 [No Known Allergies*] Exam Vital signs: Vital Signs Temp 98.4 F 11/06/20 14:42 Pulse 89 11/06/20 14:42 Resp 18 11/06/20 14:42 BP 155/83 H 11/06/20 14:42 Pulse Ox 97 11/06/20 14:42 Weight 62.6 kg Body Mass Index 25.2 - Constitutional Present: no acute distress - Routine HEENT Exam Head: Present: normal inspection Eye: Present: normal appearance ENT: Present: mucous membranes moist - Routine Neck Exam Present: full ROM - Routine Respiratory Exam Present: CTAB - Routine Cardiovascular Exam Cardiovascular: Present: RRR, S1, S2 - Routine Abdominal Exam Present: soft, nontender - Routine Rectal Exam Patient deferred: digital exam - Routine Extremities Exam Present: nontender - Routine Back/Spine/Pelvis Exam Back/Spine: Present: full ROM - Routine Skin Exam Present: intact - Routine Neurological Exam Present: alert, oriented X3 - Detailed Neurological Exam: Coma Scale Eye Opening: Spontaneous (4) - Routine Psychiatric Exam Present: normal affect Data - Labs CBC & Chem 7: 11/06/20 15:20 11/06/20 15:20 Labs: 11/06/20 15:20 CA 27.29 Routine Complete Blood Count Auto Diff Routine Comprehensive Met. Panel Routine Vitamin D 25-OH Total Routine Laboratory Last Values WBC 7.5 X10*3/uL (4.8-10.8) 11/06/20 15:20 RBC 4.61 X10*6/uL (4.20-5.50) 11/06/20 15:20 Hgb 12.7 g/dl (12.0-16.0) 11/06/20 15:20 Hct 39.7 % (37-47) 11/06/20 15:20 MCV 86.1 fL (80-98) 11/06/20 15:20 MCH 27.5 pg (27.0-33.0) 11/06/20 15:20 MCHC 32.0 g/dl (31.0-35.0) 11/06/20 15:20 RDW 12.3 % (11.0-16.0) 11/06/20 15:20 Plt Count 343 X10*3/uL (160-400) 11/06/20 15:20 MPV 9.3 fL (9.4-12.3) L 11/06/20 15:20 Immature Gran % (Auto) 0.5 % (0.0-0.4) H 11/06/20 15:20 Neut % (Auto) 56.6 % (45-73) 11/06/20 15:20 Lymph % (Auto) 29.7 % (20-40) 11/06/20 15:20 Cascade % (Auto) 7.8 % (2-11) 11/06/20 15:20 Eos % (Auto) 4.9 % (0-4) H 11/06/20 15:20 Baso % (Auto) 0.5 % (0-2) 11/06/20 15:20 Lymph # (Auto) 2.2 X10*3/uL (1.2-4.9) 11/06/20 15:20 Cascade # (Auto) 0.6 X10*3/uL (0.1-1.2) 11/06/20 15:20 Eos # (Auto) 0.4 X10*3/uL (0.0-0.4) 11/06/20 15:20 Baso # (Auto) 0.0 X10*3/uL (0.0-0.2) 11/06/20 15:20 Abs Immat Gran (auto) 0.04 X10*3/uL (0.00-0.03) H 11/06/20 15:20 Absolute Neuts (auto) 4.3 X10*3/uL (2.0-8.3) 11/06/20 15:20 Absolute Nucleated RBC 0.000 X10*3/uL (0.0-0.012) 11/06/20 15:20 Nucleated RBC % (auto) 0.0 /100WBC (0.0-0.2) 11/06/20 15:20 Sodium 140 mmol/L (135-145) 11/06/20 15:20 Potassium 3.6 mmol/l (3.3-5.1) 11/06/20 15:20 Chloride 101 mmol/L (96-108) 11/06/20 15:20 Carbon Dioxide 30 mmol/L (22-29) H 11/06/20 15:20 Anion Gap 13 (12-20) 11/06/20 15:20 BUN 9 mg/dL (9-16) 11/06/20 15:20 Creatinine 0.69 mg/dL (0.5-1.4) 11/06/20 15:20 Estim Creat Clear Calc 81.0 11/06/20 15:20 Estimated GFR > 60 11/06/20 15:20 Random Glucose 120 mg/dL (60-115) H 11/06/20 15:20 Calcium 10.3 mg/dL (8.4-10.2) H 11/06/20 15:20 Total Bilirubin 0.3 mg/dL (0.0-1.0) 11/06/20 15:20 AST 22 U/L (5-31) 11/06/20 15:20 ALT 26 U/L (0-31) 11/06/20 15:20 Alkaline Phosphatase 65 U/L (39-117) 11/06/20 15:20 Total Protein 8.2 g/dL (6.5-8.0) H 11/06/20 15:20 Albumin 4.7 g/dL (3.5-5.0) 11/06/20 15:20 CA 27-29 18 U/mL (<38) 11/06/20 15:20 25-OH Vitamin D Total 28.3 ng/mL (>30) 11/06/20 15:20 Progress Note: A/P (1) Atypical lobular hyperplasia (ALH) of left breast Status: Acute Assessment and plan: A 55-year-old lady with a Family History of Breast Cancer in her mom but mom had a triple negative breast cancer, but she was postmenopausal and in her 70s. I saw her back in December of 2016. I recommended MRI of the breasts, since that would was indicated especially in view of the risk assessment model presenting more than a 20% risk. I alternated the mammogram with the MRI. She then had a left breast biopsy in 10/19 which came back positive for atypical ductal hyperplasia. Repeat biopsy was done in October by Dr. Dumont. This came back positive for; Atypical lobular hyperplasia. Sclerosing adenosis. Usual ductal hyperplasia, mild. Fibroadenomatous change. Stromal fibrosis of previous core biopsy site. MRI of both breasts was ordered. This was done on 11/10. Results: Bilateral enhancing nodules, 4 o'clock position on the left and 10 o'clock position on the right are indeterminate in appearance due to their enhancement kinetics. Recommendations: Bilateral MR guided core biopsy. Area recommended for biopsy are smaller than the previous biopsied area which demonstrated atypical ductal hyperplasia however similar morphology and enhancement. l proceeded with bilateral MRI guided biopsies. Pathology: 1. Left breast biopsy: Benign breast tissue with mild stromal fibrosis and focal columnar cell change. No atypia or malignancy identified. 2. Right breast biopsy: Benign breast tissue with prominent lobulated adipose tissue. No atypia or malignancy identified. She underwent genetic testing in view of her strong family history including her mom and 3 1st cousins, at age is less than 40, including 1 of them who . She had that done on 11/10. This came back negative, except for variant of uncertain significance. We discussed the use of antiestrogen therapy for prophylaxis. Tamoxifen versus raloxifene. I went over the pros and the cons. Raloxifene may be safer in view of less risk of endometrial toxicity and more benefit on the bones. She is going to think about it. At this point she does not wish to start any new medication. She wants focus on healthy health habits, get her blood pressure under control and exercise. PLAN: In the meantime, the patient was advised on healthy lifestyle including plenty of exercise and fruits and vegetables. I will alternate mammogram and MRIs every 6 months. I will proceed with a mammogram in May. She will return in 6 months for a followup visit. She will go for labs, in the near future. 24 minutes was spent coordinating her care including the tele interview, review of labs, review of imaging, and counseling the patient. Thanks, CC: Dr. Rosalino Kirkland. - Time Spent With Patient Total time spent is greater than 50% in coordination of care (as documented) at patient's floor/unit and/or counseling patient: 15 - 24 minutes
--- NOTE | 2021-02-12 16:26 | MHC.HEMONCMA ---
Pt had a televisit with provder to f/u on hyperplasia of left breast. History was reviewed with pt prior to televisit.
== END | disposition home or self-care (01) ==
LOC: HO.ONC 11-06 14:23
PROVIDERS: PCP Internal Medicine; Visit Provider Internal Medicine Medical Oncology
DX: N60.92 Unspecified benign mammary dysplasia of left breast (principal); Z80.3 Family history of malignant neoplasm of breast
CPT/HCPCS: 36415; 80053; 82306; 85025; 86300; 99204

== ENCOUNTER 2024-10-01 15:45 | Outpatient (REF) | payer OTHER, SELFPAY ==
--- NOTE | ~2024-10-01 | MR_ITS ---
EXAMINATION: MR BREAST WITHOUT AND WITH CONTRAST, BILATERAL CLINICAL INFORMATION: High risk screening. History of left breast atypia status post excisional biopsy. History of bilateral benign MRI biopsies. COMPARISON: Breast MRI October [id number], mammogram October 2023. TECHNIQUE: MR imaging of the breast was performed using T1, T2 and fat saturated techniques. Dynamic multiphase imaging was also performed after administration of intravenous gadolinium contrast agent. Computer generated 3-D reconstruction was performed. FINDINGS: There is heterogeneous fibroglandular tissue with moderate background enhancement with bilateral scattered enhancing foci. LEFT BREAST: 5 mm enhancing oval mass in the lower central left breast posterior depth series 13 image 105/144 this mass demonstrates T2 hyperintensity. No other suspicious enhancing mass or area of nonmass enhancement. No axillary or internal mammary lymphadenopathy. RIGHT BREAST: No suspicious enhancing mass or nonmass enhancement. No axillary or internal mammary adenopathy. Limited views of the chest and abdomen are unremarkable. MR/MR breast BI wo/w con IMPRESSION: Right: Negative. Left: 5 mm enhancing oval mass in the lower central left breast posterior depth as this area was the area of previous excisional biopsy for atypia recommend Second Look MRI directed ultrasound of the left breast lower central breast for a correlate. If no ultrasound correlate is seen recommend MRI biopsy. ASSESSMENT: LEFT BREAST: BI-RADS 4 Suspicious biopsy recommended at this time. RIGHT BREAST: BI-RADS 1-Negative RECOMMENDATIONS: Recommend left breast ultrasound at this time if ultrasound is negative recommend Left breast MRI core needle biopsy. Electronically signed by: Nadeen Zimmerman DO 10/15/2024 08:48 AM EST
[2024-10-01] MEDS: gadobutroL 7.5 ML VIAL IVPUSH (17:30)
== END 2024-10-01 15:46 | disposition home or self-care (01) ==
LOC: HO.MRI 15:45
PROVIDERS: PCP Internal Medicine; Visit Provider Internal Medicine Medical Oncology
DX: N60.92 Unspecified benign mammary dysplasia of left breast (principal)
CPT/HCPCS: 77049; A9585

== ENCOUNTER → 2024-10-01 15:53 | Outpatient (BNV) | payer OTHER, SELFPAY | PROVIDERS: PCP Internal Medicine; Visit Provider Internal Medicine | DX: N60.92 Unspecified benign mammary dysplasia of left breast (principal) | CPT/HCPCS: 77049 ==

== ENCOUNTER 2024-10-13 10:18 | Outpatient (REF) | payer OTHER, SELFPAY ==
[2024-10-13 13:25] LABS: MANUAL DIFF FLAG NO
[2024-10-13 13:37] LABS: Basophils Absolute Auto 0.1 X10*3/uL (0.0-0.2); Basophils Percent Auto 0.6 % (0-2); Eosinophils Absolute Auto 0.6 X10*3/uL (0.0-0.4); Eosinophils Percent Auto 6.2 % (0-4); Hematocrit 41.3 % (37.0-47.0); Hemoglobin 13.5 g/dl (12.0-16.0); Imm Gran Abs Auto 0.03 X10*3/uL (0.00-0.03); Imm Gran Pct Auto 0.3 % (0.0-0.4); Lymphocytes Absolute Auto 2.5 X10*3/uL (1.2-4.9); Lymphocytes Percent Auto 26.6 % (20-40); Mean Corpuscular HGB Conc 32.7 g/dl (31.0-35.0); Mean Corpuscular Hemoglobin 28.4 pg (27.0-33.0); Mean Corpuscular Volume 86.8 fL (80.0-98.0); Mean Platelet Volume 9.2 fL (9.4-12.3); Monocytes Absolute Auto 0.6 X10*3/uL (0.1-1.2); Monocytes Percent Auto 6.1 % (2-11); Neutrophils Absolute Auto 5.6 x10*3/uL (2.0-8.3); Neutrophils Percent Auto 60.2 % (45-73); Platelet Count 395 X10*3/uL (160-400); Red Blood Count 4.76 X10*6/uL (4.20-5.50); Red Cell Distribution Width 12.6 % (11.0-16.0); White Blood Count 9.4 X10*3/uL (4.8-10.8)
[2024-10-13 14:02] LABS: Alanine Aminotransferase 23 U/L (0-31); Albumin Level 4.3 g/dL (3.5-5.0); Alkaline Phosphatase 70 U/L (39-117); Anion Gap 14 (12-20); Aspartate Amino Transferase 25 U/L (5-31); Bilirubin Total 0.5 mg/dL (0.0-1.0); Blood Urea Nitrogen 13 mg/dL (9-16); Calcium 10.4 mg/dL (8.4-10.2); Carbon Dioxide 26 mmol/L (22-29); Chloride 101 mmol/L (96-108); Cholesterol 206 mg/dL (<200); Estimated Glomerular Filt Rate > 60; Glucose Fasting 106 mg/dL (60-99); HDL Cholesterol 37 mg/dL (>40); LDL Cholesterol Calculated 129 mg/dL (<100); Potassium 3.7 mmol/L (3.3-5.1); Sodium 137 mmol/L (135-145); Total Protein 8.4 g/dL (6.5-8.0); Triglycerides 200 mg/dL (<150)
[2024-10-13 14:19] LABS: Estimated Average Glucose 134 mg/dL; Hemoglobin A1C 227.4653 umol/L; Hemoglobin A1c % 6.3 % (<6.0); Total Hemoglobin (HGBA1C) 5039.8586 umol/L
[2024-10-15 15:10] LABS: HCV Log PCR <1.18 NOT DETECTED Log IU/mL (NOT DETECTED); HepC Viral Load <15 NOT DETECTED IU/mL (NOT DETECTED)
== END 2024-10-13 10:19 | disposition home or self-care (01) ==
LOC: HO.HMGCLDS 10:18
PROVIDERS: PCP Internal Medicine; Visit Provider Internal Medicine
DX: Z00.01 Encounter for general adult medical examination with abnormal findings (principal); I77.9 Disorder of arteries and arterioles, unspecified; J45.40 Moderate persistent asthma, uncomplicated; I10 Essential (primary) hypertension; R73.01 Impaired fasting glucose; R76.8 Other specified abnormal immunological findings in serum; Z91.09 Other allergy status, other than to drugs and biological substances
CPT/HCPCS: 36415; 80053; 80061; 82306; 83036; 85025; 87522; 96127

== ENCOUNTER 2024-10-13 15:10 | Outpatient (AMB) | payer OTHER, SELFPAY ==
--- NOTE | 2024-10-13 15:08 | MHC.PC.OV ---
Vital Signs 10/13/24 15:11 Height 5 ft 2 in Weight 139 lb BMI 25.4 BP 112/68 Blood Pressure Location Rt brachial Position Sitting Pulse 80 Pulse Source Pulse Oximeter Pulse Oximetry (%) 96 Oxygen Delivery Method Room Air Intake Visit Reasons: Annual PE Allergies No Known Allergies [No Known Allergies*] Allergy (Verified 10/13/24 15:12) Medication List - Last Reconciled 10/13/24 by Rosalino Kirkland MD albuterol sulfate 90 mcg/actuation 2 puffs inhalation Q6H PRN 90 days amlodipine 5 mg PO DAILY 90 days budesonide-formoterol 160-4.5 mcg/actuation (Symbicort) 2 puffs inhalation BID 90 days cholecalciferol (vitamin D3) 50 mcg PO DAILY loratadine (Claritin) 10 mg PO DAILY olmesartan-hydrochlorothiazide 20-12.5 mg 1 tab PO DAILY 90 days Tobacco use date assessed: 10/13/24 Dental Screening Dental Screen Date: 10/13/24 Did you have a dental visit in the last 12 months?: Yes Did you have a dental problem in the last 6 months where you did not have access to dental care?: No Was dental information given to patient?: Patient has dentist HPI Annual PE HPI Details Patient is a 59-year-old female came in today for physical examination Medication list reviewed Blood pressure is stable Patient has impaired fasting sugar 106 with hemoglobin A1c of 6.3 I would recommend proper diet-controlled at this time Calcium is 10.4 we will repeat that again in six-month She has had MRI of breast done report is not available Referral to OBGYN placed Colonoscopy was [place] [address] Santiago next 1 will be in 2027 On examination today I can hear neck bruit right side I have ordered carotid ultrasound for the patient Next set of lab to be done in six-month ordered PFSH Medical History Atypical lobular hyperplasia (ALH) of left breast Nearsightedness Asthma Hypertension Surgical History History of breast lump/mass excision H/O tubal ligation Family History Mother Invasive ductal carcinoma of breast Father Diabetes Father Hypertension Social History Housing: House Patient Tobacco Use Status: Never used Tobacco e-Cigarette/Vaping Use: Never Used Current occupational status: employed Cognitive needs: No Hearing needs: No Vision needs: Yes Questionnaire PHQ-9 Over the last 2 weeks, how often have you been bothered by any of the following problems? 1. Little interest or pleasure in doing things: not at all 2. Feeling down, depressed, or hopeless: not at all 3. Trouble falling or staying asleep, or sleeping too much: not at all 4. Feeling tired or having little energy: not at all 5. Poor appetite or overeating: not at all 6. Feeling bad about yourself - or that you are a failure or have let yourself or your family down: not at all 7. Trouble concentrating on things, such as reading the newspaper or watching television: not at all 8. Moving or speaking so slowly that other people could have noticed. Or the opposite - being so fidgety or restless that you have been moving around a lot more than usual: not at all 9. Thoughts that you would be better off or of hurting yourself in some way: not at all Total score: 0 Depression Screening Interpretation: Negative Depression Screening Done: Yes 50151 - PHQ-9 Billing: Yes Source: Developed by Drs. Jani Driver, Miryam Moreno, Frankie Irwin and colleagues, with an educational macie from [employer]. Thrive Questionnaire Date Thrive assessed: 10/13/24 I am a: Patient What is your living situation today?: I have a steady place to live Within the past 12 months, did the food you bought not last and you didn't have the money to get more?: Never true Within the past 12 months, did you worry whether your food would run out before you got money to buy more?: Never true Do you have trouble paying for medicines?: No Do you have trouble getting transportation to medical appointments?: No Do you have trouble paying your heating and electricity bill?: No Do you have trouble taking care of your child, family member or friend?: No Do you have trouble with day-to-day activities such as bathing, preparing meals, shopping, managing finances, etc.?: No Are you currently unemployed and looking for a job?: No Are you interested in more education?: No THRIVE Score: 0 AUDIT C Alcohol Use Questionnaire (AUDIT-C) 1. How often do you have a drink containing alcohol?: Monthly or less 2. How many drinks containing alcohol do you have on a typical day when you are drinking?: 1 or 2 3. How often do you have six or more drinks on one occasion?: Never Total Score: 1 LOPEZ-7 AMB Questionnaire LOPEZ-7 Date LOPEZ - 7 assessed: 10/13/24 Feeling nervous, anxious, or on edge: 0 = Not at all Not being able to stop or control worryin = Not at all Worrying too much about different things: 0 = Not at all Trouble relaxin = Not at all Being so restless that it is hard to sit still: 0 = Not at all Becoming easily annoyed or irritable: 0 = Not at all Feeling afraid as if something awful might happen: 0 = Not at all Total LOPEZ-7 score (0-4 normal; 5-9 mild; 10-14 moderate; 15-21 severe): 0 Source: Developed by Drs. Jani Driver, Miryam Moreno, Frankie Irwin and colleagues, with an educational macie from [employer]. Review of Systems Const Denies chills and Denies fever(s) Eyes Denies blurry vision ENT Denies nasal discharge, Denies nasal obstruction, Denies odynophagia and Denies sinus pain Card Denies chest pain at rest and Denies chest pain with activity Resp Denies cough and Denies hemoptysis GI Denies diarrhea, Denies odynophagia, Denies vomiting and Denies hematemesis Reports as per HPI Musc Denies abnormal gait Skin/Breast Reports as per HPI Neuro Denies Neuro-related abnormal movements, Denies Abnormal speech present, Denies abnormal gait and Denies Sensory deficit (Neuro) Psych Denies mood swings and Denies paranoia Endo Reports as per HPI Yunior/Lymph Reports as per HPI Aller/Immun Reports as per HPI Physical exam (Primary Care) Vital Signs: Last Vital Signs Pulse 80 10/13/24 15:11 BP 112/68 10/13/24 15:11 Pulse Ox 96 10/13/24 15:11 Oxygen Delivery Method Room Air 10/13/24 15:11 BMI result Body Mass Index 25.4 Tobacco/Smoking Status: Tobacco use Status Tobacco use date assessed 10/13/24 10/13/24 15:09 Patient Tobacco Use Status Never used Tobacco 10/13/24 15:09 e-Cigarette/Vaping Use Never Used 10/13/24 15:09 PHQ-9: PHQ-9 Score PHQ-9: Total score 0 10/13/24 15:19 Depression Screening Interpretation: Negative Thrive Assessment: Date of Thrive Assessment Date Thrive assessed 10/13/24 10/13/24 15:19 Const General: cooperative, comfortable and no acute distress Orientation/consciousness: patient oriented x3 HENMT Head: Yes normocephalic and Yes atraumatic Eyes General: appearance normal, both eyes and all related structures Pupils: Equal, round and reactive pupils present EOM: EOMs intact bilaterally Neck Neck: Yes supple and No lymphadenopathy Thyroid: Thyroid normal Lymphatic: no lymphadenopathy noted Chest Breast/axilla palpation: normal palpation of the breasts Resp Effort & Inspection: normal respiratory effort and able to speak in complete sentences Auscultation: clear to auscultation bilaterally Cardio Heart sounds: S1 normal heart sound present and S2 normal heart sound present GI Palpation (GI): Soft to palpation and nontender Auscultation: normal bowel sounds General: Yes no CVA tenderness Back/Spine/Pelvis Back: no CVA tenderness Skin Other: Blood patches of seborrheic keratosis noticed 1 on right leg in 1 left side of face General skin exam: elasticity normal and turgor normal Neuro General: patient oriented x3 and gait normal Cranial nerves: Yes Equal, round and reactive pupils present Speech: No Abnormal speech present Sensory Exam: No Sensory deficit (Neuro) Coordination: tandem gait normal and Romberg test negative Extrem General: Yes normal exam except as noted and No edema Coding Level of Care Code Est Pt Level 3 (28945) Est Pt Prev Care 40-64y(73365) Diagnoses Encounter for general adult medical examination with abnormal findings Z00.01 Disorder of artery of neck I77.9 Moderate persistent asthma without complication J45.40 Asthma complication type: uncomplicated Environmental allergies Z91.09 Hypertension, essential I10 Impaired fasting blood sugar R73.01 Additional Codes PHQ-9 - 39174 - PHQ-9 Billing: Yes ([id number]) Assessment & Plan Assessment & Plan (1) Encounter for general adult medical examination with abnormal findings: Code(s): Z00.01 - Encounter for general adult medical examination with abnormal findings Category: Medical (2) Disorder of artery of neck: Code(s): I77.9 - Disorder of arteries and arterioles, unspecified Category: Medical (3) Asthma, moderate persistent: Code(s): J45.40 - Moderate persistent asthma, uncomplicated Category: Medical Qualifiers: Asthma complication type: uncomplicated Qualified Code(s): J45.40 - Moderate persistent asthma, uncomplicated (4) Environmental allergies: Code(s): Z91.09 - Other allergy status, other than to drugs and biological substances Category: Medical (5) Hypertension, essential: Code(s): I10 - Essential (primary) hypertension Category: Medical (6) Impaired fasting blood sugar: Code(s): R73.01 - Impaired fasting glucose Category: Medical Plan Patient is a 59-year-old female came in today for physical examination Medication list reviewed Blood pressure is stable Patient has impaired fasting sugar 106 with hemoglobin A1c of 6.3 I would recommend proper diet-controlled at this time Calcium is 10.4 we will repeat that again in six-month She has had MRI of breast done report is not available Referral to OBGYN placed Colonoscopy was [place] [address] Santiago next 1 will be in 2027 On examination today I can hear neck bruit right side I have ordered carotid ultrasound for the patient Next set of lab to be done in six-month ordered Orders: Orders Hemoglobin A1c 6 Months I10 - Essential (primary) hypertension, J45.40 - Moderate persistent asthma, uncomplicated, R73.01 - Impaired fasting glucose, Z00.01 - Encounter for general adult medical examination with abnormal findings, Z91.09 - Other allergy status, other than to drugs and biological substances Comprehensive [place]. Panel Fast 6 Months I10 - Essential (primary) hypertension, J45.40 - Moderate persistent asthma, uncomplicated, R73.01 - Impaired fasting glucose, Z00.01 - Encounter for general adult medical examination with abnormal findings, Z91.09 - Other allergy status, other than to drugs and biological substances Lipid Panel 6 Months I10 - Essential (primary) hypertension, J45.40 - Moderate persistent asthma, uncomplicated, R73.01 - Impaired fasting glucose, Z00.01 - Encounter for general adult medical examination with abnormal findings, Z91.09 - Other allergy status, other than to drugs and biological substances carotid duplex BI Today I77.9 - Disorder of arteries and arterioles, unspecified Complete Blood Count Auto Diff 6 Months I10 - Essential (primary) hypertension, J45.40 - Moderate persistent asthma, uncomplicated, R73.01 - Impaired fasting glucose, Z00.01 - Encounter for general adult medical examination with abnormal findings, Z91.09 - Other allergy status, other than to drugs and biological substances Referrals [facility] Referral Z01.419 - Encounter for gynecological examination (general) (routine) without abnormal findings Medications: Discontinued azithromycin Discontinued Reason: Patient Completed Course take 500 mg today (day 1), then 250 mg for 4 days (days 2-5) PO 6 tabs 0RF ondansetron HCl Discontinued Reason: Patient Completed Course 4 mg PO Q8H 15 days PRN 30 tabs 0RF nausea and vomiting R11.0 - Nausea amlodipine Discontinued Reason: Duplicate 5 mg PO DAILY 90 days 90 tabs 0RF doxycycline hyclate Discontinued Reason: Patient Completed Course 100 mg PO BID 14 days 28 caps 0RF nirmatrelvir-ritonavir 300 mg (150 mg x 2)-100 mg (Paxlovid) Discontinued Reason: Patient Completed Course take TWO 150 mg tablets of nirmatrelvir with ONE 100 mg tablet of ritonavir twice daily for 5 days PO 30 ea 0RF prednisone Discontinued Reason: Patient Completed Course 4 tablets x 3 days, then 3 tablets x 3 days, then 2 tablets x 3 days, then 1 tablet x 3 days 12 days 33 ea 0RF J45.901 - Unspecified asthma with (acute) exacerbation, M25.50 - Pain in unspecified joint
[2024-10-13 15:11] VITALS: BP 112/68; PULSE 80; O2SAT 96; BMI 25.4
== END 2024-10-13 16:27 | disposition home or self-care (01) ==
LOC: HO.HMCC 15:10
PROVIDERS: PCP Internal Medicine; Visit Provider Internal Medicine
DX: Z00.00 Encounter for general adult medical examination without abnormal findings (principal); I77.9 Disorder of arteries and arterioles, unspecified; J45.40 Moderate persistent asthma, uncomplicated; Z91.09 Other allergy status, other than to drugs and biological substances; I10 Essential (primary) hypertension; R73.01 Impaired fasting glucose

== ENCOUNTER 2024-10-18 14:51 | Outpatient (REF) | payer OTHER, SELFPAY | END 2024-10-18 14:52 | disposition home or self-care (01) | LOC: HO.MAMMO 14:51 | PROVIDERS: PCP Internal Medicine; Visit Provider Internal Medicine Medical Oncology | DX: Z13.89 Encounter for screening for other disorder (principal) ==

== ENCOUNTER → 2024-10-20 13:00 | Outpatient (BNV) | payer OTHER, SELFPAY | PROVIDERS: PCP Internal Medicine; Visit Provider Radiology Diagnostic Radiology | DX: N63.24 Unspecified lump in the left breast, lower inner quadrant (principal) | CPT/HCPCS: 76642 ==

== ENCOUNTER 2024-10-20 13:04 | Outpatient (REF) | payer OTHER, SELFPAY ==
--- NOTE | ~2024-10-20 | US_ITS ---
EXAMINATION: US DIAGNOSTIC ULTRASOUND BREAST, LEFT CLINICAL INFORMATION: Diagnostic exam; 5 mm oval mass like enhancement seen 7:00 axis left breast on recent breast MRI. Second Look ultrasound for correlation. Patient has history of atypia and is high risk. COMPARISON: MRI breasts 10/01/2024, and 11/05/2021. Mammography 11/21/2023, 10/25/2022. TECHNIQUE: Ultrasound of the left breast is performed with real-time leach scale imaging and color Doppler. Attention was given to the 4:00 to 8:00 axes, to include the area of interest on MRI. FINDINGS: There is no focal suspicious finding. There is no solid mass, architectural abnormality, duct ectasia, or edema in the soft tissue planes. There is linear avascular hypoechoic scarring leading up to the skin spanning the 4-8 o'clock axis. No discrete lesion could be identified which correlates with the MRI finding. US/US breast LT limited mamm only IMPRESSION: -There are no findings left breast suspicious for malignancy. -There is no correlate to the 5 mm oval masslike enhancement and 7:00 axis left breast seen on recent breast MRI. Negative Second Look ultrasound. Recommend sampling this area via breast MRI. ASSESSMENT: BI-RADS 2: Benign RECOMMENDATION: MR guided biopsy left breast. Electronically signed by: Martin Price MD 10/20/2024 02:23 PM PARAG
== END 2024-10-20 13:05 | disposition home or self-care (01) ==
LOC: HO.MAMMO 13:04
PROVIDERS: PCP Internal Medicine; Visit Provider Internal Medicine Medical Oncology
DX: N63.25 Unspecified lump in the left breast, overlapping quadrants (principal)
CPT/HCPCS: 76642

== ENCOUNTER 2024-10-25 15:23 | Outpatient (REF) | payer OTHER, SELFPAY ==
--- NOTE | ~2024-10-25 | US_ITS ---
EXAMINATION: US EXTRACRANIAL CAROTID DUPLEX, BILATERAL CLINICAL INFORMATION: Right carotid bruit. COMPARISON: None available. TECHNIQUE: Real-time ultrasound and Doppler techniques (integrating B-mode 2-D vascular images, Doppler spectral analysis and color-flow Doppler imaging) were utilized to interrogate the extracranial carotid arteries, the vertebral arteries and proximal subclavian arteries bilaterally. The degree of stenosis is determined by criteria similar to NASCET. FINDINGS: Right Side: 1. There is no significant atherosclerotic plaque seen in the bifurcation/proximal ICA region. 2. The common carotid artery PSV proximally is 127 cm/s and distally 106 cm/s. 3. The proximal internal carotid artery velocities are 128 cm/s systolic and 44 cm/s diastolic. 4. The proximal external carotid artery PSV is 151 cm/s. 5. The vertebral artery shows antegrade flow. 6. The subclavian artery waveforms are normal. Left Side: 1. There is no significant atherosclerotic plaque seen in the bifurcation/proximal ICA region. 2. The common carotid artery PSV proximally is 114 cm/s and distally 96 cm/s. 3. The proximal internal carotid artery velocities are 82 cm/s systolic and 32 cm/s diastolic. 4. The proximal external carotid artery PSV is 95 cm/s. 5. The vertebral artery shows antegrade flow. 6. The subclavian artery waveforms are normal. US/US carotid duplex BI IMPRESSION: 1. Right: Normal right internal carotid artery without atherosclerotic plaque or hemodynamically significant stenosis. 2. Left: Normal left internal carotid artery without atherosclerotic plaque or hemodynamically significant stenosis. Electronically signed by: Miko Rico MD 10/28/2024 11:53 AM EST
== END 2024-10-25 15:24 | disposition home or self-care (01) ==
LOC: HO.HMGCX 15:23
PROVIDERS: PCP Internal Medicine; Visit Provider Internal Medicine
DX: I77.9 Disorder of arteries and arterioles, unspecified (principal)
CPT/HCPCS: 93880

== ENCOUNTER 2025-01-06 09:43 | Outpatient (REF) | payer OTHER, SELFPAY ==
--- NOTE | ~2025-01-06 | MM_ITS ---
EXAMINATION: MR GUIDED VACUUM-ASSISTED CORE BIOPSY BREAST, left breast MM DIGITAL MAMMOGRAPHY POST BIOPSY, left breast CLINICAL INFORMATION: History of left breast atypia status post excisional biopsy. And annual enhancing mass within the left breast on MRI.. COMPARISON: Comparison is made with available prior examinations. TECHNIQUE/PROCEDURE: Informed consent was obtained from the patient after discussion of the benefits, risks, and alternatives to biopsy today. Patient appeared to understand. Gave opportunity for questions. Patient signed consent form. Biopsy is performed under MRI guidance using breast surface coil. Imaging is performed without and with use of Gadavist gadolinium contrast. Plumbr introducer localization system is used with grid. LESION: Enhancing oval mass lower central breast.. LOCAL ANESTHESIA: 5 mL 1% lidocaine; 5 mL 1% lidocaine with epinephrine. NEEDLE: [employer]ity 9-gauge vacuum assisted core biopsy device. APPROACH: Lateral. CORES: 12. CLIP: BI-RADS L shaped marker clip.. POSTPROCEDURE UNILATERAL DIGITAL MAMMOGRAM: Mammography is performed using digital mammography in CC and ML views. The breasts are heterogeneously dense, which may obscure small masses (ACR BI-RADS breast composition Category c). The clip marker is in position. No gross hematoma. The patient tolerated the procedure well. No immediate complications. Home instructions reviewed with the patient. Final pathology results are pending. MM/MM diagnostic reina unilateral IMPRESSION: 1. Status post MRI guided vacuum-assisted core biopsy left breast with clip placement. 2. Final pathology results pending. An addendum report will be issued. Electronically signed by: Nadeen Zimmerman DO 01/07/2025 01:07 PM PARAG
--- NOTE | ~2025-01-06 | MR_ITS ---
EXAMINATION: MR GUIDED VACUUM-ASSISTED CORE BIOPSY BREAST, left breast MM DIGITAL MAMMOGRAPHY POST BIOPSY, left breast CLINICAL INFORMATION: History of left breast atypia status post excisional biopsy. And annual enhancing mass within the left breast on MRI.. COMPARISON: Comparison is made with available prior examinations. TECHNIQUE/PROCEDURE: Informed consent was obtained from the patient after discussion of the benefits, risks, and alternatives to biopsy today. Patient appeared to understand. Gave opportunity for questions. Patient signed consent form. Biopsy is performed under MRI guidance using breast surface coil. Imaging is performed without and with use of Gadavist gadolinium contrast. [employer] introducer localization system is used with grid. LESION: Enhancing oval mass lower central breast.. LOCAL ANESTHESIA: 5 mL 1% lidocaine; 5 mL 1% lidocaine with epinephrine. NEEDLE: [employer] 9-gauge vacuum assisted core biopsy device. APPROACH: Lateral. CORES: 12. CLIP: BI-RADS L shaped marker clip.. POSTPROCEDURE UNILATERAL DIGITAL MAMMOGRAM: Mammography is performed using digital mammography in CC and ML views. The breasts are heterogeneously dense, which may obscure small masses (ACR BI-RADS breast composition Category c). The clip marker is in position. No gross hematoma. The patient tolerated the procedure well. No immediate complications. Home instructions reviewed with the patient. Final pathology results are pending. MR/MR guided breast biopsy LT IMPRESSION: 1. Status post MRI guided vacuum-assisted core biopsy left breast with clip placement. 2. Final pathology results pending. An addendum report will be issued. Electronically signed by: Nadeen Zimmerman DO 01/07/2025 01:07 PM PARAG
[2025-01-06] MEDS: Lidocaine HCl 1 % MPF 30 ML VIAL SUBCUT (12:07)
[2025-01-06] MEDS: Lidocaine HCl 1%/Epi 1:100,000 10 ML VIAL SUBCUT (12:08)
[2025-01-06] MEDS: gadobutroL 7.5 ML VIAL IVPUSH (12:09)
== END 2025-01-06 09:44 | disposition home or self-care (01) ==
LOC: HO.MRI 09:43
PROVIDERS: PCP Internal Medicine; Visit Provider Internal Medicine Medical Oncology
DX: N63.25 Unspecified lump in the left breast, overlapping quadrants (principal); N62 Hypertrophy of breast
CPT/HCPCS: 19085; 77061; 77065; 88305; A4648; A9585; J2003; J2004

== ENCOUNTER → 2025-01-06 10:11 | Outpatient (BNV) | payer OTHER, SELFPAY | PROVIDERS: PCP Internal Medicine; Visit Provider Internal Medicine | DX: N63.24 Unspecified lump in the left breast, lower inner quadrant (principal) | CPT/HCPCS: 19085; 77062 ==

== ENCOUNTER 2025-06-01 07:58 | Outpatient (REF) | payer OTHER, SELFPAY ==
[2025-06-01 10:05] LABS: MANUAL DIFF FLAG NO
[2025-06-01 10:14] LABS: Hemoglobin A1C 140.7364 umol/L; Total Hemoglobin (HGBA1C) 3462.4144 umol/L
[2025-06-01 10:15] LABS: Hematocrit 41.3 % (37.0-47.0); Hemoglobin 13.4 g/dl (12.0-16.0); Imm Gran Abs Auto 0.02 X10*3/uL (0.00-0.03); Imm Gran Pct Auto 0.2 % (0.0-0.4); Lymphocytes Absolute Auto 2.1 X10*3/uL (1.2-4.9); Mean Corpuscular HGB Conc 32.4 g/dl (31.0-35.0); Mean Corpuscular Hemoglobin 28.8 pg (27.0-33.0); Mean Corpuscular Volume 88.6 fL (80.0-98.0); NRBC Abs Auto 0.000 X10*3/uL (0.0-0.012); NRBC Pct Auto 0.0 /100WBC (0.0-0.2); Platelet Count 366 X10*3/uL (160-400); Red Blood Count 4.66 X10*6/uL (4.20-5.50); White Blood Count 8.6 X10*3/uL (4.8-10.8)
[2025-06-01 10:27] LABS: Alanine Aminotransferase 26 U/L (0-31); Albumin Level 4.6 g/dL (3.5-5.0); Alkaline Phosphatase 66 U/L (39-117); Anion Gap 14 (12-20); Aspartate Amino Transferase 25 U/L (5-31); Blood Urea Nitrogen 12 mg/dL (9-16); Calcium 10.1 mg/dL (8.4-10.2); Carbon Dioxide 30 mmol/L (22-29); Chloride 102 mmol/L (96-108); Cholesterol 210 mg/dL (<200); Estimated Glomerular Filt Rate > 60; HDL Cholesterol 33 mg/dL (>40); Potassium 3.9 mmol/L (3.3-5.1); Sodium 142 mmol/L (135-145); Total Protein 8.2 g/dL (6.5-8.0); Triglycerides 208 mg/dL (<150)
[2025-06-06 11:37] LABS: Vitamin D 25-OH, D2 <4 ng/mL; Vitamin D 25-OH, D3 34 ng/mL; Vitamin D 25-OH, Total 34 ng/mL (30-100)
== END 2025-06-01 07:59 | disposition home or self-care (01) ==
LOC: HO.HMGCLDS 07:58
PROVIDERS: PCP Internal Medicine; Visit Provider Internal Medicine
DX: I10 Essential (primary) hypertension (principal); R73.01 Impaired fasting glucose; J45.40 Moderate persistent asthma, uncomplicated; R76.8 Other specified abnormal immunological findings in serum; R53.83 Other fatigue; E78.9 Disorder of lipoprotein metabolism, unspecified
CPT/HCPCS: 36415; 80053; 80061; 82306; 83036; 84443; 85025

== ENCOUNTER 2025-08-02 16:00 | Outpatient (REF) | payer OTHER, SELFPAY ==
--- NOTE | ~2025-08-02 | MM_ITS ---
EXAMINATION: MM SCREENING DIGITAL BREAST TOMOSYNTHESIS, BILATERAL CLINICAL INFORMATION: Screening. Asymptomatic. COMPARISON: Mammography: Comparison is made with available priors TECHNIQUE: Digital breast mammography with tomosynthesis is performed in both the craniocaudal and mediolateral oblique views along with computer-aided detection (CAD). FINDINGS: The breasts are heterogeneously dense, which may obscure small masses (ACR BI-RADS breast composition Category c). Bilateral Marker clips. There are no significant masses, abnormal calcifications, or other abnormalities. MM/MM tomosynthesis screening BI IMPRESSION: No mammographic evidence of malignancy. ASSESSMENT: BI-RADS BI-RADS 2 - Benign Findings RECOMMENDATION: Routine annual mammography screening. 1 year F/U This examination should not preclude the clinical evaluation of a suspicious palpable abnormality. This patient's information was entered into a reminder system with a target due date for their next mammogram. Electronically signed by: Nadeen Zimmerman DO 08/02/2025 07:56 PM EDT
== END 2025-08-02 16:01 | disposition home or self-care (01) ==
LOC: HO.MAMMO 16:00
PROVIDERS: PCP Internal Medicine; Referring Provider Internal Medicine Medical Oncology; Visit Provider Internal Medicine
DX: Z12.31 Encounter for screening mammogram for malignant neoplasm of breast (principal)
CPT/HCPCS: 77063; 77067

== ENCOUNTER → 2025-08-02 16:03 | Outpatient (BNV) | payer OTHER, SELFPAY | PROVIDERS: PCP Internal Medicine; Referring Provider Internal Medicine Medical Oncology; Visit Provider Internal Medicine | DX: Z12.31 Encounter for screening mammogram for malignant neoplasm of breast (principal) | CPT/HCPCS: 77063; 77067 ==

== ENCOUNTER 2025-08-30 14:10 | Outpatient (AMB) | payer OTHER, SELFPAY ==
[2025-08-30 14:07] VITALS: BP 130/68; PULSE 81; O2SAT 96; BMI 25.4
--- NOTE | 2025-08-30 14:07 | A.OFFPC_ITS ---
Vital Signs 08/30/25 14:07 Height 5 ft 2 in Weight 139 lb BMI 25.4 BP 130/68 Blood Pressure Location Rt brachial Position Sitting Pulse 81 Pulse Source Pulse Oximeter Pulse Oximetry (%) 96 Intake Visit Reasons: pre op cataracts Sales Assistant Required: No Accompanied by: Self / Same As Patient Allergies No Known Allergies (No Known Allergies*) Allergy (Verified 08/30/25 14:11) Medication List - Last Reconciled 08/30/25 by Rosalino Kirkland MD albuterol sulfate 90 mcg/actuation 2 puffs inhalation Q6H PRN 90 days amlodipine 5 mg PO DAILY 90 days budesonide-formoterol 160-4.5 mcg/actuation (Symbicort) 2 puffs inhalation BID 90 days cholecalciferol (vitamin D3) 50 mcg PO DAILY loratadine (Claritin) 10 mg PO DAILY olmesartan-hydrochlorothiazide 20-12.5 mg 1 tab PO DAILY 90 days Tobacco use date assessed: 08/30/25 Dental Screening Dental Screen Date: 08/30/25 Did you have a dental visit in the last 12 months?: Yes Did you have a dental problem in the last 6 months where you did not have access to dental care?: No Was dental information given to patient?: Patient has dentist HPI pre op cataracts HPI Details Chief Complaint The patient is here for cataract management and Pre Op clearance History The patient is a 60-year-old female presenting with cataract surgery planning. Cataracts: - Development of cataracts leading to im paired vision. - [facility] to deteriorating eyesight. - Scheduled for cataract surgery under l ocal anesthesia at [facility] on September 22 and . - Has concerns regarding cataract surger y but understands it is a minor procedure. Hypertension: - Blood pressure reading at the visit wa s 130/68 mmHg. - Currently managed with medication.. Allergies: - Reports frequent runny nose and has be en identified as allergic rhinitis. - Experiences runny nose which can exace rbate asthma symptoms. Prediabetes: - Fasting glucose level previously recor ded at 100 mg/dL. - Hemoglobin A1c was 5.9% in May, previ ously noted to be 6.3%. - Discussed concern about progression to diabetes but has not surpassed the diabetic threshold of A1c 6.5%. Vitamin D Deficiency: - Vitamin D levels noted to be low-dana l; advised to supplement. Hyperlipidemia: - LDL cholesterol recorded at 136 mg/dL; normal lipid management continues. Medical History: - Hypertension - Prediabetes - Allergic Rhinitis - Vitamin D Deficiency - Hyperlipidemia - Asthma Surgical History: - Cataract surgery scheduled for September 22 and 2022. Social History: - Employment: Works part-time. - Lifestyle: Concerns about nighttime dr iving due to cataracts. Family History: - Daughter with hyperthyroidism and Hash imoto's disease. Diagnostic Results: - Labs (done in May): - CBC: Normal - Electrolytes: Within normal limits - Kidney functions: Normal - Fasting glucose: 100 mg/dL - Hemoglobin A1c: 5.9% - LDL cholesterol: 136 mg/dL - Vitamin D: Low-normal Medications - Amlodipine 5 mg, for hypertension. - Olmesartan/hydrochlorothiazide, for hy pertension. - Symbicort, for asthma management. Problem List - Cataracts - Essential Hypertension - Allergic Rhinitis - Asthma - Prediabetes - Vitamin D Deficiency - Hyperlipidemia Plan 1. Cataracts - Scheduled cataract surgery under local anesthesia. - Reviewed preparation and reassurance p rovided regarding the procedure's minor nature. 2. Essential Hypertension - Continue current antihypertensive allie men with Amlodipine and Olmesartan/hydrochlorothiazide. - Encourage ongoing monitoring of blood pressure. 3. Allergic Rhinitis - Observation and symptomatic treatment recommendations provided; potential for Flonase suggested due to non-use. 4. Asthma - Continue current therapy with Symbicor t. - Reinforcement of allergy management to prevent asthma exacerbations. 5. Prediabetes - Monitor glucose levels and dietary adv ice provided to prevent diabetes progression. - Scheduled follow-up labs in October or re-evaluation. 6. Vitamin D Deficiency - Advised Vitamin D supplementation. 7. Hyperlipidemia - Continue monitoring lipid levels; no c urrent additional intervention due to LDL noted at permissible levels. Medical Decision Making The patient requires cataract surgery due to impaired vision, necessitating scheduling under local anesthesia. Routine monitoring of chronic conditions such as hypertension and asthma is essential, with the patient remaining stable on current medications. The patient's prediabetes is carefully observed through regular HbA1c and fasting glucose monitoring, with dietary advice emphasized to avoid progression to diabetes. Additional management includes addressing the patient's allergic rhinitis and vitamin D deficiency. Lipid monitoring remains a focus given slightly elevated LDL, though no immediate changes were necessary. The patient's engagement in her care is evident, with an expressed interest in understanding potential medication impacts, demonstrating a proactive approach to her overall health management. The multifaceted plan takes into account the patient's layered medical and familial history and continuously assesses risk to optimize long-term health outcomes. Patient is stable for Cataract surgery PFSH Medical History Atypical lobular hyperplasia (ALH) of left breast Nearsightedness Asthma Hypertension Surgical History History of breast lump/mass excision H/O tubal ligation Family History Mother Invasive ductal carcinoma of breast Father Diabetes Father Hypertension Social History Housing: House Patient Tobacco Use Status: Never used Tobacco e-Cigarette/Vaping Use: Never Used Current occupational status: employed Cognitive needs: No Hearing needs: No Vision needs: Yes Questionnaire PHQ-9 Over the last 2 weeks, how often have you been bothered by any of the following problems? 1. Little interest or pleasure in doing things: not at all 2. Feeling down, depressed, or hopeless: not at all 3. Trouble falling or staying asleep, or sleeping too much: not at all 4. Feeling tired or having little energy: not at all 5. Poor appetite or overeating: not at all 6. Feeling bad about yourself - or that you are a failure or have let yourself or your family down: not at all 7. Trouble concentrating on things, such as reading the newspaper or watching television: not at all 8. Moving or speaking so slowly that other people could have noticed. Or the opposite - being so fidgety or restless that you have been moving around a lot more than usual: not at all 9. Thoughts that you would be better off or of hurting yourself in some way: not at all Total score: 0 Depression Screening Interpretation: Negative Depression Screening Done: Yes 89056 - PHQ-9 Billing: Yes Source: Developed by Drs. Jani Driver, Miryam BFrankie Pritchett and colleagues, with an educational macie from [employer]. Thrive Questionnaire Date Thrive assessed: 08/30/25 I am a: Patient What is your living situation today?: I have a steady place to live Within the past 12 months, did the food you bought not last and you didn't have the money to get more?: Never true Within the past 12 months, did you worry whether your food would run out before you got money to buy more?: Never true Do you have trouble paying for medicines?: No Do you have trouble getting transportation to medical appointments?: No Do you have trouble paying your heating and electricity bill?: No Do you have trouble taking care of your child, family member or friend?: No Do you have trouble with day-to-day activities such as bathing, preparing meals, shopping, managing finances, etc.?: No Are you currently unemployed and looking for a job?: No Are you interested in more education?: No Currently or been in a relationship where the following occur: No concerns reported THRIVE Score: 0 AUDIT C Alcohol Use Questionnaire (AUDIT-C) 1. How often do you have a drink containing alcohol?: Monthly or less 2. How many drinks containing alcohol do you have on a typical day when you are drinking?: 1 or 2 3. How often do you have six or more drinks on one occasion?: Never Total Score: 1 Score Reviewed/Action Taken: Yes LOPEZ-7 AMB Questionnaire LOPEZ-7 Date LOPEZ - 7 assessed: 08/30/25 Feeling nervous, anxious, or on edge: 0 = Not at all Not being able to stop or control worryin = Not at all Worrying too much about different things: 0 = Not at all Trouble relaxin = Not at all Being so restless that it is hard to sit still: 0 = Not at all Becoming easily annoyed or irritable: 0 = Not at all Feeling afraid as if something awful might happen: 0 = Not at all Total LOPEZ-7 score (0-4 normal; 5-9 mild; 10-14 moderate; 15-21 severe): 0 Source: Developed by Drs. Jani Driver, Frankie Gardiner and colleagues, with an educational macie from [employer]. LOPEZ-7 Assessment Billing LOPEZ-7 Assessment Tool: LOPEZ-7 Assessment 17309 Physical exam (Primary Care) Vital Signs: Last Vital Signs Pulse 81 08/30/25 14:07 BP 130/68 08/30/25 14:07 Pulse Ox 96 08/30/25 14:07 BMI result Body Mass Index 25.4 Tobacco/Smoking Status: Tobacco use Status Tobacco use date assessed 08/30/25 08/30/25 14:10 Patient Tobacco Use Status Never used Tobacco 08/30/25 14:09 e-Cigarette/Vaping Use Never Used 08/30/25 14:09 PHQ-9: PHQ-9 Score PHQ-9: Total score 0 08/30/25 14:11 Depression Screening Interpretation: Negative Thrive Assessment: Date of Thrive Assessment Date Thrive assessed 08/30/25 08/30/25 14:10 Currently or been in a relationship where the following occur: No concerns reported Coding Level of Care Code Est Pt Level 4 (37660) Diagnoses Pre-op evaluation Z01.818 Other age-related cataract of both eyes H25.89 Cataract type: age-related Age-related cataract type: other Hypertension, essential I10 Lipid disorder E78.9 Impaired fasting blood sugar R73.01 Moderate persistent asthma without complication J45.40 Asthma complication type: uncomplicated Additional Codes LOPEZ-7 Assessment Billing - LOPEZ-7 Assessment Tool: LOPEZ-7 Assessment 92001 ([id number]) PHQ-9 - 24755 - PHQ-9 Billing: Yes ([id number]) Assessment & Plan Assessment & Plan (1) Pre-op evaluation: Code(s): Z01.818 - Encounter for other preprocedural examination Category: Medical (2) Cataract, bilateral: Code(s): H26.9 - Unspecified cataract Category: Medical Qualifiers: Cataract type: age-related Age-related cataract type: other Qualified Code(s): H25.89 - Other age-related cataract (3) Hypertension, essential: Code(s): I10 - Essential (primary) hypertension Category: Medical (4) Lipid disorder: Code(s): E78.9 - Disorder of lipoprotein metabolism, unspecified Category: Medical (5) Impaired fasting blood sugar: Code(s): R73.01 - Impaired fasting glucose Category: Medical (6) Asthma, moderate persistent: Code(s): J45.40 - Moderate persistent asthma, uncomplicated Category: Medical Qualifiers: Asthma complication type: uncomplicated Qualified Code(s): J45.40 - Moderate persistent asthma, uncomplicated Plan Cataracts: - Development of cataracts leading to impaired vision. - Patient is cautious about driving at night due to deteriorating eyesight. - Scheduled for cataract surgery under local anesthesia at [facility] on September 22 and . - Has concerns regarding cataract surgery but understands it is a minor procedure. Hypertension: - Blood pressure reading at the visit was 130/68 mmHg. - Currently managed with medication.. Allergies: - Reports frequent runny nose and has been identified as allergic rhinitis. - Experiences runny nose which can exacerbate asthma symptoms. Prediabetes: - Fasting glucose level previously recorded at 100 mg/dL. - Hemoglobin A1c was 5.9% in May, previously noted to be 6.3%. - Discussed concern about progression to diabetes but has not surpassed the diabetic threshold of A1c 6.5%. Vitamin D Deficiency: - Vitamin D levels noted to be low-normal; advised to supplement. Hyperlipidemia: - LDL cholesterol recorded at 136 mg/dL; normal lipid management continues. Medical History: - Hypertension - Prediabetes - Allergic Rhinitis - Vitamin D Deficiency - Hyperlipidemia - Asthma Surgical History: - Cataract surgery scheduled for September 22 and 2022. Social History: - Employment: Works part-time. - Lifestyle: Concerns about nighttime driving due to cataracts. Family History: - Daughter with hyperthyroidism and Yudy's disease. Diagnostic Results: - Labs (done in May): - CBC: Normal - Electrolytes: Within normal limits - Kidney functions: Normal - Fasting glucose: 100 mg/dL - Hemoglobin A1c: 5.9% - LDL cholesterol: 136 mg/dL - Vitamin D: Low-normal Medications - Amlodipine 5 mg, for hypertension. - Olmesartan/hydrochlorothiazide, for hypertension. - Symbicort, for asthma management. Problem List - Cataracts - Essential Hypertension - Allergic Rhinitis - Asthma - Prediabetes - Vitamin D Deficiency - Hyperlipidemia Plan 1. Cataracts - Scheduled cataract surgery under local anesthesia. - Reviewed preparation and reassurance provided regarding the procedure's minor nature. 2. Essential Hypertension - Continue current antihypertensive regimen with Amlodipine and Olmesartan/hydrochlorothiazide. - Encourage ongoing monitoring of blood pressure. 3. Allergic Rhinitis - Observation and symptomatic treatment recommendations provided; potential for Flonase suggested due to non-use. 4. Asthma - Continue current therapy with Symbicort. - Reinforcement of allergy management to prevent asthma exacerbations. 5. Prediabetes - Monitor glucose levels and dietary advice provided to prevent diabetes progression. - Scheduled follow-up labs in October for re-evaluation. 6. Vitamin D Deficiency - Advised Vitamin D supplementation. 7. Hyperlipidemia - Continue monitoring lipid levels; no current additional intervention due to LDL noted at permissible levels. Medical Decision Making The patient requires cataract surgery due to impaired vision, necessitating scheduling under local anesthesia. Routine monitoring of chronic conditions such as hypertension and asthma is essential, with the patient remaining stable on current medications. The patient's prediabetes is carefully observed through regular HbA1c and fasting glucose monitoring, with dietary advice emphasized to avoid progression to diabetes. Additional management includes addressing the patient's allergic rhinitis and vitamin D deficiency. Lipid monitoring remains a focus given slightly elevated LDL, though no immediate changes were necessary. The patient's engagement in her care is evident, with an expressed interest in understanding potential medication impacts, demonstrating a proactive approach to her overall health management. The multifaceted plan takes into account the patient's layered medical and familial history and continuously assesses risk to optimize long-term health outcomes. Patient is stable for Cataract surgery Orders: Orders Complete Blood Count Auto Diff Today E78.9 - Disorder of lipoprotein metabolism, unspecified, H26.9 - Unspecified cataract, I10 - Essential (primary) hypertension, J45.40 - Moderate persistent asthma, uncomplicated, R73.01 - Impaired fasting glucose Vitamin D 25-OH (D2 and D3) Today E78.9 - Disorder of lipoprotein metabolism, unspecified, H26.9 - Unspecified cataract, I10 - Essential (primary) hypertension, J45.40 - Moderate persistent asthma, uncomplicated, R73.01 - Impaired fasting glucose Microalbumin, Random (w Creat) Today E78.9 - Disorder of lipoprotein metabolism, unspecified, H26.9 - Unspecified cataract, I10 - Essential (primary) hypertension, J45.40 - Moderate persistent asthma, uncomplicated, R73.01 - Impaired fasting glucose Hemoglobin A1c Today E78.9 - Disorder of lipoprotein metabolism, unspecified, H26.9 - Unspecified cataract, I10 - Essential (primary) hypertension, J45.40 - Moderate persistent asthma, uncomplicated, R73.01 - Impaired fasting glucose Comprehensive [place]. Panel Fast Today E78.9 - Disorder of lipoprotein metabolism, unspecified, H26.9 - Unspecified cataract, I10 - Essential (primary) hypertension, J45.40 - Moderate persistent asthma, uncomplicated, R73.01 - Impaired fasting glucose Lipid Panel Today E78.9 - Disorder of lipoprotein metabolism, unspecified, H26.9 - Unspecified cataract, I10 - Essential (primary) hypertension, J45.40 - Moderate persistent asthma, uncomplicated, R73.01 - Impaired fasting glucose TSH reflex Free T4 Today E78.9 - Disorder of lipoprotein metabolism, unspecified, H26.9 - Unspecified cataract, I10 - Essential (primary) hypertension, J45.40 - Moderate persistent asthma, uncomplicated, R73.01 - Impaired fasting glucose
== END 2025-08-30 15:38 | disposition home or self-care (01) ==
LOC: HO.HMCC 14:10
PROVIDERS: PCP Internal Medicine; Visit Provider Internal Medicine
DX: Z01.818 Encounter for other preprocedural examination (principal); H25.89 Other age-related cataract; I10 Essential (primary) hypertension; E78.9 Disorder of lipoprotein metabolism, unspecified; R73.01 Impaired fasting glucose; J45.40 Moderate persistent asthma, uncomplicated

== ENCOUNTER → 2025-08-30 14:10 | Outpatient (BNVA) | payer OTHER, SELFPAY | PROVIDERS: PCP Internal Medicine; Visit Provider Internal Medicine | DX: Z01.818 Encounter for other preprocedural examination (principal); I10 Essential (primary) hypertension; H25.89 Other age-related cataract; R73.03 Prediabetes; E55.9 Vitamin D deficiency, unspecified; E78.5 Hyperlipidemia, unspecified; J45.909 Unspecified asthma, uncomplicated; R73.01 Impaired fasting glucose; J45.40 Moderate persistent asthma, uncomplicated | CPT/HCPCS: 96127 ==